=== PATIENT | male | born 1960 | race Caucasian/White ===

== ENCOUNTER 2017-08-20 13:59 | Emergency (ER) | payer OTHER ==
[~2017-08-20] VITALS: Ht 188 cm; Wt 68.0 kg
== END 2017-08-20 14:15 | disposition left against medical advice (07) ==
LOC: ER 13:59
DX: Z53.21 Procedure and treatment not carried out due to patient leaving prior to being seen by health care provider (principal)
CPT/HCPCS: 93005; 93010; 99283

== ENCOUNTER 2017-08-26 21:44 | Observation (INO) | payer OTHER ==
[~2017-08-26] VITALS: Ht 188 cm; Wt 78.9 kg
[2017-08-26 22:23] LABS: BASOPHILS ABSOLUTE AUTO 0.06 K/mm3 (0.00-0.23); BASOPHILS PERCENT AUTO 1 % (0-2); EOSINOPHILS ABSOLUTE AUTO 0.27 K/mm3 (0.00-0.68); EOSINOPHILS PERCENT AUTO 3 % (0-6); Hematocrit 37.8 % (37.0-53.0); IMMATURE GRAN ABSOLUTE AUTO 0.02 K/mm3 (0.00-0.10); IMMATURE GRAN PERCENT AUTO 0 % (0-1); LYMPHOCYTES ABSOLUTE AUTO 2.38 K/mm3 (0.84-5.20); LYMPHOCYTES PERCENT AUTO 24 % (21-46); MONOCYTES ABSOLUTE AUTO 0.68 K/mm3 (0.16-1.47); MONOCYTES PERCENT AUTO 7 % (4-13); Mean Corpuscular HGB 28.4 pg (26.0-34.0); Mean Corpuscular HGB Conc 31.7 g/dL (31.5-36.5); Mean Corpuscular Volume 89 fL (80-100); Mean Platelet Volume 10.2 fL (9.1-12.4); NEUTROPHILS PERCENT AUTO 65 % (41-73); Platelet Count 265 K/mm3 (150-400); RDW Coefficient Variation 15.3 % (11.7-14.2); Red Blood Cell Count 4.23 M/mm3 (4.30-5.90); White Blood Cell Count 9.81 K/mm3 (4.00-11.30)
[2017-08-26 22:37] LABS: International Normalized Ratio 1.06
[2017-08-26 22:47] LABS: Alanine Aminotransfer (ALT/SGP 30 U/L (12-78); Albumin, Blood 3.5 g/dL (3.4-5.0); Albumin/Globulin Ratio 0.9 (0.8-1.8); Alk Phos 55 U/L (50-136); Anion Gap 9 mmol/L (6-16); Aspartate Aminotrans (AST/SGOT 20 U/L (12-37); Bilirubin, Total 0.4 mg/dL (0.1-1.0); Blood Urea Nitrogen 15 mg/dL (8-24); CO2, Blood 26 mmol/L (21-32); Calcium, Blood 8.5 mg/dL (8.5-10.1); Chloride, Blood 106 mmol/L (98-108); Creatinine, Blood 0.88 mg/dL (0.60-1.20); Globulin, Blood 3.9 g/dL (2.2-4.0); Glomerular Filtration Rate >60 (60-); Glucose, Blood 91 mg/dL (70-99); Magnesium, Blood 2.2 mg/dL (1.6-2.4); Potassium, Blood 3.6 mmol/L (3.5-5.5); Sodium, Blood 141 mmol/L (136-145); Total Protein, Blood 7.4 g/dL (6.4-8.2); Troponin I <0.015 ng/mL (0.000-0.040)
[2017-08-27 06:16] LABS: BASOPHILS ABSOLUTE AUTO 0.05 K/mm3 (0.00-0.23); BASOPHILS PERCENT AUTO 1 % (0-2); EOSINOPHILS ABSOLUTE AUTO 0.28 K/mm3 (0.00-0.68); EOSINOPHILS PERCENT AUTO 4 % (0-6); Hematocrit 32.7 % (37.0-53.0); Hemoglobin 10.3 g/dL (13.5-17.5); IMMATURE GRAN ABSOLUTE AUTO 0.01 K/mm3 (0.00-0.10); IMMATURE GRAN PERCENT AUTO 0 % (0-1); LYMPHOCYTES ABSOLUTE AUTO 1.96 K/mm3 (0.84-5.20); LYMPHOCYTES PERCENT AUTO 26 % (21-46); MONOCYTES ABSOLUTE AUTO 0.52 K/mm3 (0.16-1.47); MONOCYTES PERCENT AUTO 7 % (4-13); Mean Corpuscular HGB 28.1 pg (26.0-34.0); Mean Corpuscular HGB Conc 31.5 g/dL (31.5-36.5); Mean Corpuscular Volume 89 fL (80-100); Mean Platelet Volume 10.3 fL (9.1-12.4); NEUTROPHILS ABSOLUTE AUTO 4.69 K/mm3 (1.96-9.15); NEUTROPHILS PERCENT AUTO 63 % (41-73); Platelet Count 219 K/mm3 (150-400); RDW Coefficient Variation 15.3 % (11.7-14.2); RDW Standard Deviation 50.4 fL (35.1-46.3); Red Blood Cell Count 3.66 M/mm3 (4.30-5.90); White Blood Cell Count 7.51 K/mm3 (4.00-11.30)
[2017-08-27 06:39] LABS: Alanine Aminotransfer (ALT/SGP 28 U/L (12-78); Albumin, Blood 2.9 g/dL (3.4-5.0); Albumin/Globulin Ratio 0.9 (0.8-1.8); Alk Phos 47 U/L (50-136); Anion Gap 7 mmol/L (6-16); Aspartate Aminotrans (AST/SGOT 23 U/L (12-37); Bilirubin, Total 0.4 mg/dL (0.1-1.0); Blood Urea Nitrogen 14 mg/dL (8-24); Bun/Creatinine Ratio 16.2 (12.0-20.0); CO2, Blood 25 mmol/L (21-32); Calcium, Blood 8.1 mg/dL (8.5-10.1); Chloride, Blood 109 mmol/L (98-108); Creatinine, Blood 0.87 mg/dL (0.60-1.20); Globulin, Blood 3.3 g/dL (2.2-4.0); Glomerular Filtration Rate >60 (60-); Glucose, Blood 95 mg/dL (70-99); Potassium, Blood 4.2 mmol/L (3.5-5.5); Sodium, Blood 141 mmol/L (136-145); Total Protein, Blood 6.2 g/dL (6.4-8.2)
[2017-08-27 06:40] LABS: CPK Creatine Kinase 71 U/L (39-308); Troponin I <0.015 ng/mL (0.000-0.040)
[2017-08-27 11:24] LABS: Source, Urine Clean Catch
[2017-08-27 11:33] LABS: Bilirubin, Urine Neg (Neg); Blood, Urine 1+ (Neg); Glucose Qualitative, Urine Neg (Neg); Ketones, Urine Neg (Neg); Leukocyte Esterase, Urine 2+ (Neg); Nitrite, Urine Neg (Neg); Protein, Urine Neg (Neg); Urobilinogen, Urine 2+ (Normal); pH, Urine 6.5 (5.0-8.0)
[2017-08-27 11:38] LABS: Appearance, Urine Clear (Clear); Color, Urine Yellow (P-Yellow)
[2017-08-27 11:45] LABS: White Blood Cells, Urine 25-50 /hpf (0-5)
[2017-08-27 11:46] LABS: Bacteria Rare /hpf; Mucus Light (0-Heavy); Red Blood Cells, Urine 0-2 /hpf (0-2); Squamous Epithelial Cells Rare /hpf (Few)
[2017-08-27 15:11] LABS: CPK Creatine Kinase 60 U/L (39-308); Troponin I <0.015 ng/mL (0.000-0.040)
[2017-08-28] MEDS ORDERED: ASPI325 PO (11:21)
[2017-08-28] MEDS ORDERED: Metoprolol Tart25 MG PO (11:25)
== END 2017-08-28 12:31 | disposition home or self-care (01) ==
LOC: ER 21:44 → MEDS 21:45 → ICUW 21:45 → ICUE 08-27 02:27 → MEDS 08-27 09:44 → ENPENDDIS 08-28 11:00 → MEDS 08-28 12:31
PROVIDERS: Emergency Medicine; Internal Medicine
DX: I48.91 Unspecified atrial fibrillation (principal); F17.210 Nicotine dependence, cigarettes, uncomplicated; E87.6 Hypokalemia; I48.92 Unspecified atrial flutter; Z23 Encounter for immunization
CPT/HCPCS: 36415; 71046; 80053; 81001; 82550; 83735; 83880; 84443; 84484; 85025; 85610; 85730; 87086; 93005; 93010; 93306; 96365; 96366; 96367; 96368; 96372; 96375; 99285; G0008; G0378; J0153; J1644; J1650; J2001; J3480; J7030; J7040; Q2038

== ENCOUNTER 2017-09-01 13:13 | Emergency (ER) | payer OTHER ==
[~2017-09-01] VITALS: Ht 188 cm; Wt 72.6 kg
[~2017-09-01 13:13] MED LIST: ASPI325 PO; Metoprolol Tart25 MG PO
[2017-09-01 14:09] LABS: BASOPHILS ABSOLUTE AUTO 0.06 K/mm3 (0.00-0.23); BASOPHILS PERCENT AUTO 1 % (0-2); EOSINOPHILS ABSOLUTE AUTO 0.34 K/mm3 (0.00-0.68); EOSINOPHILS PERCENT AUTO 4 % (0-6); Hematocrit 35.4 % (37.0-53.0); IMMATURE GRAN ABSOLUTE AUTO 0.02 K/mm3 (0.00-0.10); IMMATURE GRAN PERCENT AUTO 0 % (0-1); LYMPHOCYTES ABSOLUTE AUTO 2.06 K/mm3 (0.84-5.20); LYMPHOCYTES PERCENT AUTO 26 % (21-46); MONOCYTES ABSOLUTE AUTO 0.44 K/mm3 (0.16-1.47); MONOCYTES PERCENT AUTO 6 % (4-13); Mean Corpuscular HGB 27.6 pg (26.0-34.0); Mean Corpuscular HGB Conc 31.1 g/dL (31.5-36.5); Mean Corpuscular Volume 89 fL (80-100); Mean Platelet Volume 10.3 fL (9.1-12.4); NEUTROPHILS ABSOLUTE AUTO 5.12 K/mm3 (1.96-9.15); NEUTROPHILS PERCENT AUTO 64 % (41-73); Platelet Count 246 K/mm3 (150-400); RDW Coefficient Variation 14.7 % (11.7-14.2); RDW Standard Deviation 48.1 fL (35.1-46.3); Red Blood Cell Count 3.98 M/mm3 (4.30-5.90); White Blood Cell Count 8.04 K/mm3 (4.00-11.30)
[2017-09-01 14:35] LABS: Alanine Aminotransfer (ALT/SGP 32 U/L (12-78); Albumin, Blood 3.8 g/dL (3.4-5.0); Alk Phos 54 U/L (50-136); Anion Gap 4 mmol/L (6-16); Aspartate Aminotrans (AST/SGOT 27 U/L (12-37); Bilirubin, Total 0.3 mg/dL (0.1-1.0); Blood Urea Nitrogen 20 mg/dL (8-24); CO2, Blood 28 mmol/L (21-32); Calcium, Blood 8.9 mg/dL (8.5-10.1); Chloride, Blood 109 mmol/L (98-108); Creatinine, Blood 0.91 mg/dL (0.60-1.20); Globulin, Blood 3.8 g/dL (2.2-4.0); Glomerular Filtration Rate >60 (60-); Glucose, Blood 89 mg/dL (70-99); Magnesium, Blood 2.2 mg/dL (1.6-2.4); Potassium, Blood 4.3 mmol/L (3.5-5.5); Sodium, Blood 141 mmol/L (136-145); Total Protein, Blood 7.6 g/dL (6.4-8.2)
[2017-09-01 14:37] LABS: Troponin I <0.015 ng/mL (0.000-0.040)
[2017-09-01] MEDS ORDERED: Metoprolol Succ25 MG PO (15:22)
== END 2017-09-01 15:44 | disposition home or self-care (01) ==
LOC: ER 13:13
PROVIDERS: Emergency Medicine
DX: I48.91 Unspecified atrial fibrillation (principal); Z87.891 Personal history of nicotine dependence; Z59.0 Homelessness
CPT/HCPCS: 71046; 80053; 83735; 84484; 85025; 93005; 93010; 99284; J7120

== ENCOUNTER 2018-07-27 18:05 | Inpatient (IN) | payer OTHER ==
[~2018-07-27] VITALS: Ht 188 cm; Wt 97.0 kg
[~2018-07-27 18:05] MED LIST changes: +Metoprolol Succ25 MG PO
[2018-07-27 18:40] LABS: Calcium, Ionized (POC) 1.16 mmol/L (1.10-1.46); Chloride (POC) 105 mmol/L (98-108); Glucose (ISTAT POC) 186 mg/dL (70-99); Hemoglobin (POC) 12.6 g/dL (13.5-17.5); Potassium (POC) 3.9 mmol/L (3.5-5.5); Sodium (POC) 141 mmol/L (135-148); Total CO2 (POC) 18 mmol/L (21-32)
[2018-07-27 19:02] LABS: Hematocrit 39.6 % (37.0-53.0); Hemoglobin 12.1 g/dL (13.5-17.5); Mean Corpuscular HGB 30.1 pg (26.0-34.0); Mean Corpuscular HGB Conc 30.6 g/dL (31.5-36.5); Mean Corpuscular Volume 99 fL (80-100); Mean Platelet Volume 10.3 fL (9.1-12.4); Platelet Count 236 K/mm3 (150-400); RDW Standard Deviation 46.2 fL (35.1-46.3); Red Blood Cell Count 4.02 M/mm3 (4.30-5.90); White Blood Cell Count 8.88 K/mm3 (4.00-11.30)
[2018-07-27 19:10] LABS: Alanine Aminotransfer (ALT/SGP 38 U/L (12-78); Albumin, Blood 3.4 g/dL (3.4-5.0); Alk Phos 46 U/L (50-136); Anion Gap 16 mmol/L (6-16); Aspartate Aminotrans (AST/SGOT 42 U/L (12-37); Bilirubin, Total 0.3 mg/dL (0.1-1.0); Blood Urea Nitrogen 42 mg/dL (8-24); CHOL/HDL RATIO 1.8; CO2, Blood 18 mmol/L (21-32); Calcium, Blood 9.2 mg/dL (8.5-10.1); Chloride, Blood 107 mmol/L (98-108); Cholesterol 105 mg/dL (50-200); Creatinine, Blood 1.91 mg/dL (0.60-1.20); Globulin, Blood 3.4 g/dL (2.2-4.0); Glomerular Filtration Rate 38 (60-); Glucose, Blood 189 mg/dL (70-99); HDL Cholesterol 57 mg/dL (>39); LDL/HDL RATIO 0.3; Low Density Lipoprotein Chol 18 mg/dL (0-110); Magnesium, Blood 2.4 mg/dL (1.6-2.4); Potassium, Blood 3.9 mmol/L (3.5-5.5); Sodium, Blood 141 mmol/L (136-145); Total Protein, Blood 6.8 g/dL (6.4-8.2); Triglycerides 149 mg/dL (30-160); Troponin I 0.058 ng/mL (0.000-0.040); Very Low Density Lipoprot Chol 29 mg/dL (6-32)
[2018-07-27] MEDS ORDERED: Lopressor 25 mg25 MG PO (19:34)
[2018-07-27 19:36] LABS: International Normalized Ratio 1.37; Prothrombin Time Results 14.1 Sec (9.7-11.5)
[2018-07-27 19:55] LABS: Source, Urine Voided
[2018-07-27 20:01] LABS: Appearance, Urine Hazy (Clear); Bilirubin, Urine Neg (Neg); Blood, Urine 4+ (Neg); Color, Urine Yellow (P-Yellow); Glucose Qualitative, Urine Neg (Neg); Ketones, Urine 1+ (Neg); Leukocyte Esterase, Urine 3+ (Neg); Nitrite, Urine Neg (Neg); Protein, Urine 2+ (Neg); Urobilinogen, Urine NORM (Normal)
[2018-07-27 20:27] LABS: Squamous Epithelial Cells Not Seen /hpf (Few); White Blood Cells, Urine TNTC /hpf (0-5)
[2018-07-27 20:28] LABS: Bacteria Mod /hpf; Red Blood Cells, Urine Not Seen /hpf (0-2)
[2018-07-27 23:48] LABS: PCO2 Arterial 33.2 mmHg (35-45); PO2 Arterial 402 mmHg (80-100); pH Blood Arterial 7.36 (7.35-7.45)
[2018-07-28 01:24] LABS: U Amphetamine Screen DETECTED; U Barbituate Screen Not Detected; U Benzodiazapine Screen Not Detected; U Buprenorphine Screen Not Detected; U Cannabinoids Screen Not Detected; U Cocaine Screen Not Detected; U Methadone Screen Not Detected; U Methamphetamine Screen DETECTED; U Opiates Screen Not Detected; U Oxycodone Screen Not Detected; U Phencyclidine Screen Not Detected; U Propoxyphene Screen Not Detected
--- NOTE | 2018-07-28 02:00 | NUR ---
ADMIT PT ARRIVED TO ICU 8 AT 2330 VIA ER BED, INTUBATED AND SEDATED. PT TRANSFERED TO ICU VENT, SETTINGS AC 18, TV 500, PEEP 5, FIO2 100% INITIALLY. FIO2 NOW TITRATED DOWN TO 45%. PT UNABLE TO OPEN EYES TO COMMANDS, BUT GAG AND COUGH REFLEXES PRESENT AND PT THRASHING AROUND IN BED AT TIMES. PT SEDATED WITH VERSED UPON ARRIVAL FROM ED. PT STARTED ON PROPOFOL AT 20 MCG/KG/MIN. PT ON EPI GTT THROUGH PERIPHERAL IV UPON ARRIVAL FROM ED. DR GONZALEZ HERE TO SEE PT AND PLACE CENTRAL LINE. LINE PLACED TO RIJ, CXR OBTAINTED TO CONFIRM PLACEMENT. NEW ORDERS RECIEVED, SEE ORDER HX. PT CURRENTLY ON DOPAMINE GTT AT 10 MCG/KG/MIN. HR 90'S, SBP 90-110'S WITH DOPAMINE GTT. OGT PLACED TO LIS WITH BILE RETURN NOTED. CHARLES TEMP PROBE IN PLACE WITH YELLOW OUTPUT NOTED. SBW RESTRAINTS IN PLACE. NO FAMILY AT BEDSIDE AT THIS TIME. WILL CONTINUE TO MONITOR.
[2018-07-28 02:55] LABS: Hematocrit 34.5 % (37.0-53.0); Hemoglobin 11.2 g/dL (13.5-17.5); Mean Corpuscular HGB 30.3 pg (26.0-34.0); Mean Corpuscular HGB Conc 32.5 g/dL (31.5-36.5); Platelet Count 193 K/mm3 (150-400); RDW Coefficient Variation 12.9 % (11.7-14.2); RDW Standard Deviation 44.5 fL (35.1-46.3); White Blood Cell Count 12.66 K/mm3 (4.00-11.30)
[2018-07-28 03:03] LABS: Mean Corpuscular Volume 93 fL (80-100)
[2018-07-28 03:12] LABS: Albumin, Blood 3.1 g/dL (3.4-5.0); Bilirubin, Total 0.3 mg/dL (0.1-1.0); Bun/Creatinine Ratio 26.3 (12.0-20.0); Calcium, Blood 7.5 mg/dL (8.5-10.1); Creatinine, Blood 1.71 mg/dL (0.60-1.20); Globulin, Blood 3.1 g/dL (2.2-4.0); Potassium, Blood 4.9 mmol/L (3.5-5.5); Total Protein, Blood 6.2 g/dL (6.4-8.2)
[2018-07-28 03:29] LABS: Troponin I 17.8 ng/mL (0.000-0.040)
[2018-07-28 03:46] LABS: Creatine Kinase MB 97.3 ng/mL (0.0-3.6); Creatine Kinase MB Index 7.7 (0.0-4.0)
--- NOTE | 2018-07-28 06:02 | NUR ---
SHIFT SUMMARY NO ACUTE CHANGES SINCE ADMIT. PT HAS REMAINED SEDATED ON VENT, AC 18, TV 500, PEEP 5, FIO2 35%. PT UNRESPONSIVE TO NOXIOUS STIMULI, BUT GAG AND COUGH PRESENT. PT OCCASIONALLY THRASHES AROUND IN BED. SBW RESTRAINTS IN PLACE. CL TO RIGHT IJ IN PLACE WITH DOPAMINE AT 10 MCG/KG/MIN, PROPOFOL AT 30 MCG/KG/MIN, HEPARIN AT 13 UNITS/KG/HR, NS TKO. OGT IN PLACE. CHARLES IN PLACE WITH YELLOW OUTPUT NOTED. VITAL SIGNS STABE AT THIS TIME. DR JIANG IN TO SEE PT THIS MORNING AND TO PUT IN NEW ORDERS. SEE PREVIOUS SHIFT NOTES FOR MORE SHIFT INFO. WILL CONTINUE TO MONITOR AND REPORT OFF TO ONCOMING RN.
--- NOTE | 2018-07-28 08:42 | NUR ---
IN UNIT; GIVEN UPDATE ON PT.
--- NOTE | 2018-07-28 10:08 | NUR ---
IN TO SEE PT. EKG AND LIMITED ECHO ORDERED AND COMPLETED. EKG SHOWS ACUTE SC. DR HARRIS AWARE. DR MOORE IN TO SEE PT. DR LATHAM IN TO SEE PT WELL. NO SURGICAL INTERVENTION AT THIS TIME.
--- NOTE | 2018-07-28 10:15 | NUR ---
DR HARRIS SPOKE WITH PT'S FRIEND WHOM WAS LISTED ONLY CONTACT. PT DOES NOT HAVE FAMILY. PT HAS HX OF NON COMPLIANCE WITH MEDICATIONS. STEMI WILL BE TREATED MEDICALLY. PALLIATIVE CARE NOTIFIED AND WILL FOLLOW UP WITH ETHICS. PT NOW DNR STATUS. SPUTUM SAMPLE SENT TO LAB.
[2018-07-28 11:35] LABS: Troponin I 47.2 ng/mL (0.000-0.040)
[2018-07-28 11:57] LABS: Creatine Kinase MB Index 10.5 (0.0-4.0)
--- NOTE | 2018-07-28 12:09 | NUR ---
Review of patient with Hospitalist. Ethical and care plan support for decisional process of acute patient. Contacted Kayce Domingo. She is his contact and friend. Asked about next of kin. States he has none and no contact with family for years. Kayce wilburn she did not know he was in hosptital stated she would come in right away. Advised her he was very ill in icu on vertilator and care decision needed to be made. Cardiolgist contacted Kayce for plan of care and decisional support for patient. will physicians with supportive care as guided by [facility] directive of compassionate care. Will review with cardiology for [employer] prognostic assessment for survival.
--- NOTE | 2018-07-28 12:33 | NUR ---
HEPARIN INCREASED TO 14UNITS PER PHARMACY. TROPONIN CALLED INTO DR PACHECO, SEE NEW ORDERS
--- NOTE | 2018-07-28 12:46 | NUR ---
chart review of previous admission and care. Review of patient with cardiology.
--- NOTE | 2018-07-28 19:20 | NUR ---
ASSUMED CARE BEDSIDE REPORT RECIEVED. PT IS RESTING QUIETLY, SEDATED, ON VENT. VENT SETTINGS AC 18, TV 500, PEEP 5, FIO2 35%. PT WITH LARGE AMOUNT OF THICK WHITE SECRETIONS WITH ETT SUCTION. PT WITH GOOD COUGH AND GAG. PT NOT AROUSING TO VERBAL OR NOXIOUS STIMULI AT THIS TIME. PT SEDATED WITH PROPOFOL AT 30 MCG/KG/MIN. VITAL SIGNS STABLE WITH DOPAMINE AT 10 MCG/KG/MIN. HEPARIN GTT INFUSING AT 15 UNITS/KG/HR PER PHARMACY. CL TO RIGHT IJ C/D/I. OGT IN PLACE WITH TF AT 25 ML/HR, MINIMAL RESIDUALS NOTED. SBW RESTRAINTS IN PLACE. CHARLES IN PLACE. NO FAMILY AT BEDSIDE. WILL CONTINUE TO MONITOR.
--- NOTE | 2018-07-28 19:25 | NUR ---
PT WOKE UP AROUND 1830, RESTLESS, ANXIOUS. TRYING TO SPEAK. PT NODDED HEAD YES TO PAIN. PT ABLE TO BUSINESS TRAVEL CONSULTANT HAND TO COMMAND. DR JIANG NOTIFIED. FENT ORDERED. TF STARTED AT 25CC/HR. REPORT GIVEN TO ONCOMING RN
[2018-07-29 03:23] LABS: BASOPHILS ABSOLUTE AUTO 0.04 K/mm3 (0.00-0.23); BASOPHILS PERCENT AUTO 0 % (0-2); EOSINOPHILS ABSOLUTE AUTO 0.01 K/mm3 (0.00-0.68); EOSINOPHILS PERCENT AUTO 0 % (0-6); Hematocrit 35.8 % (37.0-53.0); Hemoglobin 11.4 g/dL (13.5-17.5); IMMATURE GRAN ABSOLUTE AUTO 0.04 K/mm3 (0.00-0.10); IMMATURE GRAN PERCENT AUTO 0 % (0-1); LYMPHOCYTES ABSOLUTE AUTO 1.65 K/mm3 (0.84-5.20); LYMPHOCYTES PERCENT AUTO 16 % (21-46); MONOCYTES ABSOLUTE AUTO 1.04 K/mm3 (0.16-1.47); MONOCYTES PERCENT AUTO 10 % (4-13); Mean Corpuscular HGB 30.2 pg (26.0-34.0); Mean Corpuscular HGB Conc 31.8 g/dL (31.5-36.5); Mean Corpuscular Volume 95 fL (80-100); Mean Platelet Volume 10.2 fL (9.1-12.4); NEUTROPHILS ABSOLUTE AUTO 7.68 K/mm3 (1.96-9.15); NEUTROPHILS PERCENT AUTO 73 % (41-73); Platelet Count 200 K/mm3 (150-400); RDW Coefficient Variation 13.2 % (11.7-14.2); RDW Standard Deviation 45.7 fL (35.1-46.3); Red Blood Cell Count 3.78 M/mm3 (4.30-5.90); White Blood Cell Count 10.46 K/mm3 (4.00-11.30)
[2018-07-29 03:40] LABS: International Normalized Ratio 1.11; Prothrombin Time Results 11.7 Sec (9.7-11.5)
[2018-07-29 03:45] LABS: Alanine Aminotransfer (ALT/SGP 118 U/L (12-78); Albumin, Blood 2.8 g/dL (3.4-5.0); Albumin/Globulin Ratio 0.9 (0.8-1.8); Alk Phos 44 U/L (50-136); Anion Gap 7 mmol/L (6-16); Aspartate Aminotrans (AST/SGOT 582 U/L (12-37); Bilirubin, Total 0.3 mg/dL (0.1-1.0); Blood Urea Nitrogen 30 mg/dL (8-24); Bun/Creatinine Ratio 28.6 (12.0-20.0); CO2, Blood 24 mmol/L (21-32); Calcium, Blood 7.8 mg/dL (8.5-10.1); Chloride, Blood 110 mmol/L (98-108); Creatinine, Blood 1.05 mg/dL (0.60-1.20); Glomerular Filtration Rate >60 (60-); Glucose, Blood 148 mg/dL (70-99); Magnesium, Blood 2.1 mg/dL (1.6-2.4); Phosphorus, Blood 2.3 mg/dL (2.5-4.9); Potassium, Blood 3.7 mmol/L (3.5-5.5); Sodium, Blood 141 mmol/L (136-145); Total Protein, Blood 5.8 g/dL (6.4-8.2)
--- NOTE | 2018-07-29 04:30 | NUR ---
SBT PT DID WELL WITH SBT THIS AM. PT BECAME SOMEWHAT AGITATED INITIALLY REACHING FOR ETT. PT REASSURED AND MED WITH 1MG ATIVAN PRN. PT REFUSED TO OPEN EYES UPON COMMAND OR SQUEEZE HANDS UPON COMMAND. PT SHOOK HEAD NO WHEN ASKED TO DO SO. LATER ON, PT SPONTANEOUSLY OPENED EYES AND CONTINUED TO ATTEMPT TO REACH FOR ETT. VITAL SIGNS REMAINED STABLE. PROPOFOL RESTARTED AT 30 MCG/KG/MIN.
[2018-07-29 05:12] LABS: PCO2 Arterial 33.9 mmHg (35-45); PO2 Arterial 71.8 mmHg (80-100); pH Blood Arterial 7.41 (7.35-7.45)
--- NOTE | 2018-07-29 06:00 | NUR ---
SHIFT SUMMARY NO ACUTE CHANGES THIS SHIFT. PT REMAINS SEDATED ON VENT. VENT SETTINGS REMAIN UNCHANGED. VITAL SIGNS HAVE REMAINED STABLE WITH DOPAMINE AT 10 MCG/KG/MIN. PROPOFOL HAS REMAINED AT 30 MCG/KG/MIN. HEPARIN INCREASED TO 16 UNITS/KG/HR PER PHARMACY. TF INCREASED TO GOAL RATE, MINIMAL RESIDUALS NOTED. CHARLES IN PLACE WITH GOOD URINE OUTPUT NOTED. PT WITH POOR PERIPHERAL PERFUSION AND COOL EXTREMITIES. PT APPEARS TO BE MORE ASHEN IN COLOR WHEN COMPARED TO BEGINNING OF SHIFT. WILL CONTINUE TO MONITOR AND REPORT OFF TO ONCOMING RN.
--- NOTE | 2018-07-29 08:28 | NUR ---
PT HAS INCREASED ECTOPY WITH ACC JUNCTIONAL RHYTHM AT TIMES. BP DROPS SIGNIFICANTLY WITH THIS RHYTHM. RATE IN 60'S. DOPAMINE INCREASED TO 20MCG DURING THIS EVENT; PT'S RESPONDS TO DOPAMINE WITH RETURN OF SINUS RHYTHM AND INCREASE IN BP. DR PACHECO AT BEDSIDE TO SEE PT. FLUIDS ORDERED.
--- NOTE | 2018-07-29 08:43 | NUR ---
PT CONVERTING IN BETWEEN A FLUTTER AND NSR W ECTOPY;PVC'S, PAC'S, DROPPED QRS, FIRST DEGREE HEART BLOCK. DR JIANG IN UNIT; GIVEN UPDATE. NS STARTED AT 125CC/HR X 1L.
--- NOTE | 2018-07-29 08:52 | NUR ---
DR JIANG AT BEDSIDE. HEPARIN GTT DC'D PER DR PACHECO. NS STARTED. PT GRAMACING, RESPONDS TO NOXIOUS STIMULI, NOT OPENING EYES OR OLLOWING DIRECTIONS. PT WILL REMAIN INTUBATE TODAY. TF INFUSING PER Indra LACKEY ORDERS. DOPAMINE TITRATED DOWN TO 18MCG
--- NOTE | 2018-07-29 10:07 | NUR ---
DOPAMINE DECREASED TO 14MCG. HEPARIN DC'D
--- NOTE | 2018-07-29 10:59 | NUR ---
DR PACHECO IN UNIT SPEAKING WITH PT'S FRIEND BERTA.
--- NOTE | 2018-07-29 11:22 | NUR ---
PER DR PACHECO NEW ORDERS NOT TO ESCALATE CARE OF PT. DOPAMINE NOT BE INCREASED PAST 14MCG; WHICH IS PT'S CURRENT DOSE.
--- NOTE | 2018-07-29 13:06 | NUR ---
LEFT EYE CRUSTED OVER; CLEANED W WARM COMPRESS, DROPS APPLIED. ATTENDS CLEAN. PT DENIES C/O PAIN. NO SIGNS OF ETOH W/D OF YET. PT ORIENTED TO SELF AND PLACE. UNABLE TO [place] OR YEAR. LEVOPHED AT 5MCG.
--- NOTE | 2018-07-29 15:33 | NUR ---
Physician spoke with contact. will update care mangers on [facility] status and plan of care.
--- NOTE | 2018-07-29 15:38 | NUR ---
review ith ICU nurse of plan if pt should .
--- NOTE | 2018-07-29 16:44 | NUR ---
PT REMAINS ON 14MCG OF DOPAMINE. 200CC RESIDUAL; TF PLACED ON HOLD. TYLENOL PT GIVEN FOR TEMP 100.9 RATHER THAN COOLING EXCESSIVELY PT HAS VERY POOR PERIPHERAL PERFUSION AT THIS POINT IN TIME. PT REMAINS SEDATED AND COMFORTABLE ON 30MCG OF PROPOFOL; GRIMACES W NOXIOUS STIMULI.
--- NOTE | 2018-07-29 17:49 | NUR ---
PT'S TEMP 101.7. DR JIANG NOTIFIED. ICE PACKS PLACED TO GROIN, UNDER ARMS, AND NECK. COOL CLOTH TO FOREHEAD, FAN ON PT.
--- NOTE | 2018-07-29 20:00 | NUR ---
ASSUMED CARE BEDSIDE REPORT RECIEVED. PT IS SEDATED ON VENT. VENT SETTINGS AC 12, TV 500, PEEP 5, FIO2 30%. PT APPEARS CALM AND COMFORTABLE AT THIS TIME. SEDATED WITH PROPOFOL AT 30 MCG/KG/MIN. CL TO RIJ C/D/I. VITAL SIGNS STABLE AT THIS TIME WITH DOPAMINE AT 14 MCG/KG/MIN. OGT IN PLACE. TF STARTED AT 40 ML/HR GOAL RATE, NO RESIDUALS AT THIS TIME. SBW RESTRAINTS IN PLACE. PT WITH COOL AND PALE EXTREMITIES. SOME MOTTLING NOTED TO BLE FROM KNEES DOWN. CHARLES IN PLACE WITH YELLOW OUTPUT NOTED. NO FAMILY AT BEDSIDE. PT WITH COUGH AND GAG PRESENT, NOT AROUSEABLE TO VERBAL OR NOXIOUS STIMULI AT THIS TIME. WILL CONTINUE TO MONITOR.
[2018-07-30 04:08] LABS: BASOPHILS ABSOLUTE AUTO 0.04 K/mm3 (0.00-0.23); BASOPHILS PERCENT AUTO 0 % (0-2); EOSINOPHILS ABSOLUTE AUTO 0.02 K/mm3 (0.00-0.68); EOSINOPHILS PERCENT AUTO 0 % (0-6); Hematocrit 36.5 % (37.0-53.0); Hemoglobin 11.8 g/dL (13.5-17.5); IMMATURE GRAN ABSOLUTE AUTO 0.05 K/mm3 (0.00-0.10); IMMATURE GRAN PERCENT AUTO 0 % (0-1); LYMPHOCYTES ABSOLUTE AUTO 1.49 K/mm3 (0.84-5.20); LYMPHOCYTES PERCENT AUTO 13 % (21-46); MONOCYTES ABSOLUTE AUTO 1.51 K/mm3 (0.16-1.47); MONOCYTES PERCENT AUTO 13 % (4-13); Mean Corpuscular HGB 29.9 pg (26.0-34.0); Mean Corpuscular HGB Conc 32.3 g/dL (31.5-36.5); Mean Corpuscular Volume 93 fL (80-100); Mean Platelet Volume 10.4 fL (9.1-12.4); NEUTROPHILS PERCENT AUTO 73 % (41-73); Platelet Count 214 K/mm3 (150-400); RDW Coefficient Variation 13.3 % (11.7-14.2); RDW Standard Deviation 45.1 fL (35.1-46.3); Red Blood Cell Count 3.94 M/mm3 (4.30-5.90); White Blood Cell Count 11.61 K/mm3 (4.00-11.30)
[2018-07-30 04:27] LABS: International Normalized Ratio 1.14; Prothrombin Time Results 11.9 Sec (9.7-11.5)
[2018-07-30 04:35] LABS: Alanine Aminotransfer (ALT/SGP 120 U/L (12-78); Albumin, Blood 2.6 g/dL (3.4-5.0); Albumin/Globulin Ratio 0.8 (0.8-1.8); Alk Phos 52 U/L (50-136); Anion Gap 7 mmol/L (6-16); Aspartate Aminotrans (AST/SGOT 426 U/L (12-37); Bilirubin, Total 0.4 mg/dL (0.1-1.0); Blood Urea Nitrogen 22 mg/dL (8-24); Bun/Creatinine Ratio 26.4 (12.0-20.0); CO2, Blood 23 mmol/L (21-32); Calcium, Blood 7.8 mg/dL (8.5-10.1); Chloride, Blood 110 mmol/L (98-108); Creatinine, Blood 0.83 mg/dL (0.60-1.20); Globulin, Blood 3.4 g/dL (2.2-4.0); Glomerular Filtration Rate >60 (60-); Glucose, Blood 159 mg/dL (70-99); Magnesium, Blood 2.2 mg/dL (1.6-2.4); Phosphorus, Blood 2.3 mg/dL (2.5-4.9); Potassium, Blood 4.2 mmol/L (3.5-5.5); Sodium, Blood 140 mmol/L (136-145); Vancomycin, Trough 10.9 ug/mL (5.0-10.0)
[2018-07-30 05:23] LABS: PCO2 Arterial 31.6 mmHg (35-45); PO2 Arterial 67.2 mmHg (80-100); pH Blood Arterial 7.43 (7.35-7.45)
--- NOTE | 2018-07-30 06:03 | NUR ---
SHIFT SUMMARY NO ACUTE CHANGES THIS SHIFT. PT DID WELL WITH SBT THIS AM. PT OPENED EYES TO VERBAL STIMULI AND IS ABLE TO SQUEEZE HANDS UPON COMMAND. PT REMAINS SEDATED ON VENT AT THIS TIME. VENT SETTINGS UNCHANGED. PROPOFOL AT 30 MCG/KG/MIN, DOPAMINE AT 14 MCG/KG/MIN, AND NS TKO. VITAL SIGNS HAVE REMAINED STABLE WITH DOPAMINE GTT. SBW RESTRAINTS REMAIN IN PLACE. OGT WITH TF AT 40 ML/HR GOAL RATE, MINIMAL RESIDUALS THIS SHIFT. CHARLES IN PLACE WITH GOOD URINE OUTPUT THIS SHIFT. EXTREMITIES REMAIN COOL AND PALE. WILL CONTINUE TO MONITOR AND REPORT OFF TO ONCOMING RN.
--- NOTE | 2018-07-30 07:45 | NUR ---
AM ASSESSMENT: PT IS INTUBATED AND SEDATED WITH TITRATED PROPOFOL. NO SIGNS OF PAIN AT THIS TIME. PT MOVES ALL EXTREMITIES WEAKLY. BILATERAL SOFT, WRIST RESTRAINTS IN PLACE. LUNGS ARE CLEAR BUT DIMINISHED IN THE BILATERAL BASES. SATS >90% ON VENT SETTINGS: AC-12, TV-500, P-5, FI02-30%. HR REGULAR- 90'S RANGE. PT CONTINUED ON TITRATED DOPAMINE AT 14MCG/MIN. STARTED NS @ 125ML/HR PER CYNDI JUNIOR. WILL PUSH IVF'S IN ATTEMPT TO START WEANING PT OFF DOPAMINE. WILL MAINTAIN CURRENT LEVEL OF CARE BUT PLAN OF CARE PER PT'S WISHES IS NOT TO INCREASE ACUITY OF CARE AT THIS TIME. PT WILL REMAIN INTUBATED BUT IS A DNR OTHERWISE. CENTRAL LINE TO RT IJ. ABD IS SLIGHTLY DISTENDED. BT'S HYPOACTIVE X4 QAUDS DESPITE PIVOT 1.5 @ GOAL RATE. LOW RESIDUALS. CHARLES CATH DRAINING CLEAR, YELLOW URINE TO GRAVITY.
--- NOTE | 2018-07-30 12:55 | NUR ---
DR LEMON IN TO ASSESS PT. UPDATED WITH PT'S CURRENT STATUS. DISCUSSED CONTINUED NEED FOR DOPAMINE TO MANAGE HYPOTENSION.
--- NOTE | 2018-07-30 13:22 | NUR ---
No family or friends present at bedside. Pt vented and non-responsive to touch/voice. Held his hand, providing presence of love and compassion. Advised RN to contact me when friend arrives. I will remain available.
--- NOTE | 2018-07-30 18:34 | NUR ---
SHIFT SUMMARY: PT REMAINS INTUBATED AND SEDATED WITH TITRATED PROPOFOL. NO SIGNS OF PAIN AT THIS TIME. PT MOVES ALL EXTREMITIES WEAKLY. BILATERAL SOFT, WRIST RESTRAINTS IN PLACE. LUNGS ARE CLEAR BUT DIMINISHED IN THE BILATERAL BASES. SATS >90% ON VENT SETTINGS: AC-12, TV-500, P-5, FI02-30%. HR REGULAR- 90'S RANGE. PT CONTINUED ON TITRATED DOPAMINE AT 12MCG/MIN. NS @ 125ML/HR. WILL MAINTAIN CURRENT LEVEL OF CARE BUT PLAN OF CARE PER PT'S WISHES IS NOT TO INCREASE ACUITY OF CARE AT THIS TIME. PT WILL REMAIN INTUBATED BUT IS A DNR OTHERWISE. CENTRAL LINE TO RT IJ. VANCO/ZOSYN D/C'D, PT STARTED ON CEFAZOLIN PER URINE C+S. ABD IS SLIGHTLY DISTENDED. BT'S HYPOACTIVE X4 QAUDS DESPITE PIVOT 1.5 @ GOAL RATE. LOW RESIDUALS. NO BM THIS SHIFT. CHARLES CATH DRAINING CLEAR, YELLOW URINE TO GRAVITY, 500ML OUT THIS SHIFT.
--- NOTE | 2018-07-30 19:15 | NUR ---
ASSUMING CARE OF PT AT THIS TIME. PT REPORT RECEIVED AT BEDSIDE WITH OFFGOING NURSE, VIGNESH HANSON. PT LAYING IN BED, INTUBATED, AND SEDATED. PT DOES NOT APPEAR TO BE IN DISTRESS AT THIS TIME. VS STABLE - SEE VS FS. WILL REVIEW PLAN OF CARE.
--- NOTE | 2018-07-30 19:25 | NUR ---
REPORTED OFF TO MARGIE VICK WHOM WILL ASSUME CARE OF THIS PT.
--- NOTE | 2018-07-30 19:30 | NUR ---
ASSESSMENT PT UNRESPONSIVE, DOES NOT RESPOND TO PAINFUL STIMULI EXCEPT FACIAL GRIMACING WITH ORAL CARE, SLIGHT GAG/COUGH NOTED WITH DEEP ORAL CARE, INTUBATED, SEDATED, DOES NOT OPEN EYES, SLUGGISH PUPIL RESPOND, NO TRACKING WITH EYES, DOES NOT NOD HEAD Y/N TO QUESTIONS, DOES NOT FOLLOW COMAMNDS, UNRESPONSIVE. PROPOFOL DRIP AT 40 MCG/KG/MIN. PROPOFOL DRIP TITRATED TO 30 MCG/KG/MIN. WILL CONT TO TITRATE PROFOL DRIP TO EFFECT. PT DOES NOT MOVE EXTREMETIES. NO S/SX OF PAIN/DISCOMFORT NOTED AT THIS TIME. LUNGS COARSE, DIMINISHED MIDDLE AND LOWER LOBES. VENT SETTINGS: AC 12, TV 500, PEEP 5, FIO2 30%. OXY SAT >90%. RR 20'S. SX VIA ETT: SMALL AMOUNTS OF THICK WHITE SECRETIONS. TEMP 99.5 - FAN ON, BLANKETS OFF, ROOM TEMP DOWN, ICE BAGS. ACCELERATED JUNCTIONAL RHYTHM. HR 80'S. BP STABLE (SEE VS FS) WHILE ON DOPAMINE DRIP. DOPAMINE DRIP 12 MCG/KG/MIN - WILL TITRATE TO EFFECT. HEPARIN DRIP AT 16 UNITS/KG/HR AT A DOSING WEIGHT 83 KG (26.6 ML/HR). FAINT PULSES. TRACE EDEMA. SKIN COOL, PALE, CYANOTIC, MOTTLED. SKIN MOTTLED UP TO BILAT KNEES AND FINGERS. HYPOACTIVE BT X4 QUADRANTS. ABD SOFT, NONTENDER, MILD DIST. OG IN PLACE. TF: PIVOT 1.5 @ GOAL RATE 40 ML/HR AND 30 ML FLUSH Q4 HR. RESIDUAL 10. NO BM. F/C: DARK YELLOW URINE. CL R IJ. NS TKO AT 10 ML/HR. NS AT 125 ML/HR.
--- NOTE | 2018-07-31 01:00 | NUR ---
[facility] DEM[facility] MOLINA ALLOWING [facility] AT 0100 TO BE DRAWN WITH AM LABS.
[2018-07-31 03:39] LABS: BASOPHILS ABSOLUTE AUTO 0.04 K/mm3 (0.00-0.23); BASOPHILS PERCENT AUTO 0 % (0-2); EOSINOPHILS ABSOLUTE AUTO 0.03 K/mm3 (0.00-0.68); EOSINOPHILS PERCENT AUTO 0 % (0-6); Hematocrit 34.4 % (37.0-53.0); Hemoglobin 10.8 g/dL (13.5-17.5); IMMATURE GRAN ABSOLUTE AUTO 0.07 K/mm3 (0.00-0.10); IMMATURE GRAN PERCENT AUTO 1 % (0-1); LYMPHOCYTES ABSOLUTE AUTO 1.22 K/mm3 (0.84-5.20); LYMPHOCYTES PERCENT AUTO 12 % (21-46); MONOCYTES ABSOLUTE AUTO 0.86 K/mm3 (0.16-1.47); MONOCYTES PERCENT AUTO 9 % (4-13); Mean Corpuscular HGB 29.3 pg (26.0-34.0); Mean Corpuscular HGB Conc 31.4 g/dL (31.5-36.5); Mean Corpuscular Volume 94 fL (80-100); Mean Platelet Volume 11.2 fL (9.1-12.4); NEUTROPHILS ABSOLUTE AUTO 7.83 K/mm3 (1.96-9.15); NEUTROPHILS PERCENT AUTO 78 % (41-73); NRBC ABSOLUTE 0.04 K/mm3 (0.00-0.02); NRBC Auto 0.4 /100 WBC (0.0-0.2); Platelet Count 224 K/mm3 (150-400); RDW Coefficient Variation 13.6 % (11.7-14.2); RDW Standard Deviation 46.4 fL (35.1-46.3); Red Blood Cell Count 3.68 M/mm3 (4.30-5.90); White Blood Cell Count 10.05 K/mm3 (4.00-11.30)
--- NOTE | 2018-07-31 03:47 | NUR ---
DR. GONZALEZ DIFFICULTY OBTAINING ACCURATE SPO2 READING. PRINCESS RN, NICANOR RN, LILLY RN, JATINDER RT, AND BERYL RT HAVE BEEN ATTEMPTING TO OBTAIN ACCURATE SPO2 READING T/O SHIFT. WHEN SPO2 PROBE IS READING, OXYGEN SATURATION 90% AND GREATER WHILE ON VENT SETTINGS AC 12, TV 500, PEEP 5. DR. GONZALEZ ORDERED AM ABG.
[2018-07-31 03:59] LABS: Albumin, Blood 2.4 g/dL (3.4-5.0); Anion Gap 8 mmol/L (6-16); Blood Urea Nitrogen 27 mg/dL (8-24); CO2, Blood 22 mmol/L (21-32); Calcium, Blood 7.6 mg/dL (8.5-10.1); Chloride, Blood 109 mmol/L (98-108); Creatinine, Blood 0.84 mg/dL (0.60-1.20); Glomerular Filtration Rate >60 (60-); Glucose, Blood 161 mg/dL (70-99); Magnesium, Blood 2.1 mg/dL (1.6-2.4); Phosphorus, Blood 2.7 mg/dL (2.5-4.9); Sodium, Blood 139 mmol/L (136-145)
[2018-07-31 04:19] LABS: PCO2 Arterial 30.8 mmHg (35-45); PO2 Arterial 74.4 mmHg (80-100); pH Blood Arterial 7.41 (7.35-7.45)
--- NOTE | 2018-07-31 04:55 | NUR ---
DR. LEMON CALLED DR. LEMON AT THIS TIME TO VERIFY SBT THIS AM. DR. LEMON INSTRUCTED TO NOT COMPLETE SBT THIS AM. INFORMED RT BERYL AT THIS TIME.
--- NOTE | 2018-07-31 05:05 | NUR ---
SHIFT ASSESSMENT NO ACUTE CHANGES NOTED T/O SHIFT. PT RESPONDS TO VERBAL STIMULI WITH DECREASED SEDATION, PT RESPONDS TO PAINFUL STIMULI, FACIAL GRIMACING WITH ORAL CARE, SLIGHT GAG/COUGHINGNOTED WITH DEEP ORAL CARE, OPENED EYES SPONT WITH DECREASED SEDATION, SLUGGISH PUPIL RESPONSES, TRACKS VOICES, LOCALIZES PAIN, DOES NOT NOD HEAD Y/N TO QUESTIONS, FOLLOWED SIMPLE COMMANDS (ABLE TO CORE CUTTER AND REAMER ON COMMAND AND WIGGLE FT ON COMMAND). PROPOFOL DRIP CURRENTLY AT 40 MCG/KG/MIN - CONT TO TITRATE DRIP TO EFFECT. COMPLETED SEDATION VACATION THIS SHIFT. ANGELIA SENSATION. PT DUMONT WITH DECREASED SEDATION. WEAK MOVEMENT NOTED. NO S/SX OF PAIN/DISCOMFORT NOTED EXCEPT FACIAL GRIMACING WITH ORAL CARE. LUNGS COARSE, DIMINISHED MIDDLE AND LOWER LOBES. VENT SETTINGS: AC 12, TV 500, PEEP 5, FIO2 40%. OXY SAT 90% AND GREATER. DIFFICULTY OBTAINING ACCURATE SPO2 READING T/O SHIFT (SEE PREVIOUS NN). ABG COMPLETED THIS AM. RR 14 TO 30'S. SX VIA ETT: SMALL AMOUNTS OF THICK WHITE SECRETIOSN. TMAX 100.5 - FAN ON, BLANKETS OFF, ROOM TEMP DOWN, ICE BAGS IN [place]. ACCELERATED JUNCTIONAL RHYTHM. HR 80'S TO 100'S. BP STABLE (SEE VS FS) WHILEON DOPAMINE DRIP. DOPAMINE DRIP 12 MCG/KG/MIN - CONT TO TITRATE TO EFFECT. HEPARIN DRIP AT 18 UNITS/KG/MIN AT A DOSING WEIGHT 83 KG (29.9 ML/HR). FAINT PULSES. TRACE EDEMA. SKIN COOL, PALE, CYANOTIC, MOTTLED. SKIN MOTTLED UP TO BILAT KNEES AND FINGERS. INCREASED HR, BP, RR, TEMP NOTED WITH DECREASED SEDATION. INCREASED AGITATION AND RESTLESSNESS NOTED WITH DECREASED SEDATION. HYPOACTIVE BT X4 QUADRANTS. ABD SOFT, NONTENDER, MILD DIST. OG IN PLACE. TF: PIVOT 1.5 @ GOAL RATE AT 40 ML/HR AND 30 ML FLUSH Q4 HR. RESIDUAL WNL. F/C: DARK YELLOW URINE. CL R IJ. NS AT 125 ML/HR. WILL CONT TO MONITOR AND PROVIDE BEDSIDE REPORT TO ONCOMING NURSE THIS AM..
--- NOTE | 2018-07-31 06:56 | NUR ---
DR. JUNIOR PACHECO IN TO SEE PT AT THIS TIME. NO NEW ORDERS AT THIS TIME.
[2018-07-31 06:59] LABS: Alanine Aminotransfer (ALT/SGP 284 U/L (12-78); Aspartate Aminotrans (AST/SGOT 492 U/L (12-37)
--- NOTE | 2018-07-31 08:30 | NUR ---
CARE ASSUMED CARE AND REPORT ASSUMED FROM NICANOR HANSON. PT INTUBATED ON VENT AC 12, TV 500, PEEP5, FIO2 40%. LUNG SOUNDS CLEAR THROUGHOUT. SEDATED WITH PROPOFOL GTT AT 30 MCG. SEDATION VACATION LASTING 20 MINUTES AND PT OPENED EYES ON COMMANDS AND WAS ABLE TO SQUEEZE HANDS. BLE WEAK WHEN ASKED TO MOVE LEGS AND FEET. BUE RESTAINED. SOME OF THE FINGERS AND TOES ARE PURPLISH AND CYANOTIC IN COLOR AND COLD TO TOUCH. PULSES ARE THREADY AND IT IS DIFFICULT TO OBTAIN SPO2 AT THIS TIME. NSR WITH PVCS, JUNCTIONAL RHYTHM PER CARDIO, HR 70S. DOPAMINE GTT INFUSING AT 8 MCG AT THIS TIME, MAP 65-70. HEPARIN GTT INFUSING TA 18 UNITS/HR. NS INFUSING AT 125 ML/HR PER ORDER. PROPOFOL GTT INFUSING AT 30 MCG. TOLERATING TF AT GOAL RATE, 40 ML/HR WITH MINIMAL RESIDUAL. WILL CONTINUE TO MONITOR.
--- NOTE | 2018-07-31 12:46 | NUR ---
REASSESSMENT PT REMAINS INTUBATED AND SEDATED. VENT AC 12, 500, PEEP 5, FIO2 40%. LUNG SOUNDS CLEAR. PROPOFOL GTT INFUSING AT 30 MCG. DOPAMINE GTT INFUSING AT 10 MCG. BUE RESTRAINED. TOLERATING TF AT GOAL RATE. NS INFUSING AT 125ML/HR PER ORDER. HOB ELEVATED AND PT TURNED. ATTEMPTED 2X TO CALL BERTA, PTS NEXT OF KIN AND NO ANSWER. MESSAGE LEFT ON VOICEMAIL TO HAVE HER CALL BACK. WILL CONTINUE TO MONITOR.
--- NOTE | 2018-07-31 18:27 | NUR ---
SHIFT SUMMARY PT REMAINED INTUBATED AND SEDATED ENTIRE SHIFT EXCEPT 20 MINUTE SEDATION VACATION. VENT ON AC ENTIRE SHIFT. BUE REMAIN RESTRAINED. TOLERATED TF AT GOAL RATE WITH MINIMAL RESIDUALS ENTIRE SHIFT. DOPAMINE GTT INFUSED ENTIRE SHIFT; ATTEMPTED TO DECREASE. LUNG SOUNDS CLEAR VS. COARSE. HEPARIN GTT HAS INFUSED AT 18 UNITS/HR PER PHARMACY. NS INFUSING AT 125 ML/HR PER ORDER. PROPOFOL GTT CURRENTLY AT 30 MCG. PT HAD MANY LIQUID BOWEL MOVEMENTS; RECTAL TUBE INSERTED AT 1600. WILL GIVE BEDSIDE, HANDOFF REPORT TO VICKY RN.
--- NOTE | 2018-07-31 20:00 | NUR ---
PT CONT INTUBATED & W WRISTS RESTRAINED BILAT. PT SEDATED W PROPOFOL 30MCG/KG/MIN. PT IS ALSO ON DOPAMINE 7MCG/KG/MIN, & HEPARIN GTT. PT GENERALLY UNRESPONSIVE MAKES NO SPONT MOVEMENT. BP 80'S W MAP 65. PT EXTREM COOL, FINGERS DUSKY, SOME MOTTLING TO KNEES, THO NOTED IMPROVED FROM YEST. FIO2 IS 35%, ETT SXN FOR MOSTLY WHITISH SECRETIONS. TF IS AT GOAL.
--- NOTE | 2018-08-01 | NUR ---
DOPAMINE WAS TITRATED TO 8MCG. PT CONT W LOW GRADE TEMP. PT GRIMACES W TURNING & TONGUES AT ORAL SWABS FOR MOUTH CARE. WRIST RESTRAINTS REMAIN IN PLACE.
--- NOTE | 2018-08-01 06:00 | NUR ---
PROPOFOL WAS DECREASED TO 25MCG/KG/MIN. PT NOTED TO RAISE L HAND TOWARD ETT & OCCAS COUGH, EYES PARTIALLY OPEN. PT HANDS & FINGERS SEEM LESS DUSKY. DOPAMINE CONTINUES AT 8MCG/KG/MIN. PT WAS BATHED & PARTIAL SHAVE, NO SKIN BREAKDOWN. NO INQURY FROM FRIEND/FAMILY DURING NOC. REPORT TO DAYSHIFT.
[2018-08-01 06:13] LABS: Alanine Aminotransfer (ALT/SGP 299 U/L (12-78); Albumin, Blood 2.3 g/dL (3.4-5.0); Albumin/Globulin Ratio 0.7 (0.8-1.8); Alk Phos 107 U/L (50-136); Anion Gap 9 mmol/L (6-16); Aspartate Aminotrans (AST/SGOT 355 U/L (12-37); Bilirubin, Total 0.3 mg/dL (0.1-1.0); Blood Urea Nitrogen 29 mg/dL (8-24); Bun/Creatinine Ratio 30.2 (12.0-20.0); CO2, Blood 21 mmol/L (21-32); Calcium, Blood 7.7 mg/dL (8.5-10.1); Chloride, Blood 110 mmol/L (98-108); Creatinine, Blood 0.96 mg/dL (0.60-1.20); Globulin, Blood 3.4 g/dL (2.2-4.0); Glomerular Filtration Rate >60 (60-); Glucose, Blood 158 mg/dL (70-99); Potassium, Blood 4.3 mmol/L (3.5-5.5); Sodium, Blood 140 mmol/L (136-145); Total Protein, Blood 5.7 g/dL (6.4-8.2)
--- NOTE | 2018-08-01 07:20 | NUR ---
START OF SHIFT NOTE: PATIENT IS MECHANICALLY VENTILATED SETTINGS ARE 12/5, VT 500, AND FiO2 35 %, PATIENT IS ALSO ON DOPAMINE AT 8, HEPARIN AT 19, AND PROPOFOL AT 25, ABLE TO OPEN EYES DURING ORAL CARE, UNABLE TO FOLLOW COMMANDS, NS INFUSING AT 125/HR, ANCEF HUNG, PATIENT IS IN RESTRAINTS, ELEVATED TEMP AT 100.2, APPEARS LESS MOTTLED ON LOWER EXTREMITIES AND FINGERS AND NAIL BEDS ARE PINK, RT IN TO SEE PATIENT, DRESSING ON RIJ C/D/I, CALL LIGHT IN REACH, WILL CONTINUE TO MONITOR.
--- NOTE | 2018-08-01 08:46 | NUR ---
DR. PACHECO IN TO SEE PATIENT, WAITING FOR FAMILY TO CALL OR TO VISIT.
--- NOTE | 2018-08-01 11:03 | NUR ---
PATIENT'S FRIEND BERTA WAS CONTACTED VIA PHONE, NO ANSWER, MESSAGE LEFT, WILL TRY TO GET IN TOUCH WITH HER.
--- NOTE | 2018-08-01 14:45 | NUR ---
aPTT 55, PER PHARMACY KEEP HEPARIN DRIP AT 19 UNITS/HR.
--- NOTE | 2018-08-01 16:01 | NUR ---
PATIENT WAS ON PROPOFOL AT 25 MCG SINCE SHIFT CHANGE THIS AM, STARTED TO BECOME RESTLESS AROUND 1500 HOURS, O2 DESATING INTO UPPER 80'S, SUCTIONED, PATIENT NOT FOLLOWING COMMANDS, BUT WILL OPEN EYES SPONTANEOUSLY, FOUND WITH LEGS HANGING OVER SIDE, PROPOFOL WAS INCREASED TO 45 MCG FOR 30 MINUTES, PATIENT WAS REPOSITIONED, CALMED DOWN, O2 SATS BACK IN MID 90'S, PROPOFOL DECREASED TO 35 MCG, PATIENT APPEARS TO BE RESTING COMFORTABLY, CALL LIGHT IN REACH, WILL CONTINUE TO MONITOR.
--- NOTE | 2018-08-01 17:43 | NUR ---
SHIFT SUMMARY NOTE: PATIENT CONTINUES TO BE MECHANICALLY VENTILATED, SETTINGS ARE 12/5/500/FiO2 35 %, O2 SATS ARE IN MID TO UPPER 90'S, LUNG SOUNDS DIMINISHED IN ALL LOBES, NSR WITH OCCASIONAL ACCELERATED JUNCTIONAL RHYTHM, SBP'S ARE IN 110'S WITH DOPAMINE INFUSING AT 8, NS INFUSING AT A RATE OF 125 CC/HR, HEPARIN CONTINUES TO BE AT 19 AFTER NOON aPTT DRAW, PROPOFOL AT 35 AT THIS TIME, PATIENT WILL OPEN EYES SPONTANEOUSLY, BUT IS UNABLE TO FOLLOW COMMANDS, BOWEL TONES HYPOACTIVE, RECTAL TUBE IN PLACE, ONLY ABOUT 50 CC OF LIGHT BROWN WATERY STOOL NOTED, CHARLES CATHETER IN PLACE, INCREASED U/O OF 1150 CC CLEAR YELLOW URINE, SKIN APPEARANCE IS LESS MOTTLED, EXTREMITIES WARM TO TOUCH, CONTINUES TO RUN A LOW GRADE FEVVER OF 99.9, TRIED TO CONTACT HIS FRIEND BERTA, BUT NO ANSWER ON HER CELL PHONE, LEFT MESSAGES TWICE, DR. PACHECO AND DR. LEMON CALLED WELL AND LEFT MESSAGES, FRIEND ISAK VISITED AND WILL ALSO HELP WITH CONTACTING BERTA, CALL LIGHT IN REACH, WILL CONTINUE TO MONITOR AND GIVE REPORT TO ONCOMING TRAFFIC OPERATIONS ENGINEER.
--- NOTE | 2018-08-01 19:44 | NUR ---
ASSUMED CARE BEDSIDE REPORT RECIEVED. PT IS RESTING QUIETLY SEDATED ON VENT. VENT AC 12, TV 500, PEEP 5, FIO2 35%. VITAL SIGNS STABLE AT THIS TIME. CL TO RIJ C/D/I. DOPAMINE INFUSING AT 8 MCG/KG/MIN, PROPOFOL AT 35 MCG/KG/MIN, HEPARIN AT 19 UNITS/KG/HR PER PHARMACY, AND NS AT 125 ML/HR. OGT IN PLACE WITH TF AT 40 ML/HR GOAL RATE. MINIMAL RESIDUALS NOTED. CHARLES IN PLACE WITH YELLOW OUTPUT NOTED. RECTAL TUBE IN PLACE WITH LIQUID BROWN OUTPUT NOTED. SBW RESTRAINTS IN PLACE. EXTREMITIES ARE PINK AND WARM. NO FAMILY AT BEDSIDE. WILL CONTINUE TO MONITOR.
[2018-08-02 04:39] LABS: BASOPHILS ABSOLUTE AUTO 0.03 K/mm3 (0.00-0.23); BASOPHILS PERCENT AUTO 0 % (0-2); EOSINOPHILS ABSOLUTE AUTO 0.13 K/mm3 (0.00-0.68); EOSINOPHILS PERCENT AUTO 2 % (0-6); Hematocrit 30.5 % (37.0-53.0); Hemoglobin 9.5 g/dL (13.5-17.5); IMMATURE GRAN ABSOLUTE AUTO 0.03 K/mm3 (0.00-0.10); IMMATURE GRAN PERCENT AUTO 0 % (0-1); LYMPHOCYTES ABSOLUTE AUTO 1.34 K/mm3 (0.84-5.20); LYMPHOCYTES PERCENT AUTO 18 % (21-46); MONOCYTES ABSOLUTE AUTO 0.52 K/mm3 (0.16-1.47); MONOCYTES PERCENT AUTO 7 % (4-13); Mean Corpuscular HGB 29.1 pg (26.0-34.0); Mean Corpuscular HGB Conc 31.1 g/dL (31.5-36.5); Mean Corpuscular Volume 94 fL (80-100); Mean Platelet Volume 11.3 fL (9.1-12.4); NEUTROPHILS ABSOLUTE AUTO 5.41 K/mm3 (1.96-9.15); NEUTROPHILS PERCENT AUTO 73 % (41-73); NRBC ABSOLUTE 0.09 K/mm3 (0.00-0.02); NRBC Auto 1.2 /100 WBC (0.0-0.2); Platelet Count 226 K/mm3 (150-400); RDW Coefficient Variation 13.9 % (11.7-14.2); RDW Standard Deviation 47.2 fL (35.1-46.3); Red Blood Cell Count 3.26 M/mm3 (4.30-5.90); White Blood Cell Count 7.46 K/mm3 (4.00-11.30)
[2018-08-02 05:00] LABS: Alanine Aminotransfer (ALT/SGP 231 U/L (12-78); Albumin, Blood 2.2 g/dL (3.4-5.0); Albumin/Globulin Ratio 0.6 (0.8-1.8); Alk Phos 97 U/L (50-136); Anion Gap 7 mmol/L (6-16); Aspartate Aminotrans (AST/SGOT 208 U/L (12-37); Bilirubin, Total 0.5 mg/dL (0.1-1.0); Blood Urea Nitrogen 25 mg/dL (8-24); Bun/Creatinine Ratio 30.3 (12.0-20.0); CO2, Blood 24 mmol/L (21-32); Calcium, Blood 7.6 mg/dL (8.5-10.1); Chloride, Blood 112 mmol/L (98-108); Creatinine, Blood 0.82 mg/dL (0.60-1.20); Globulin, Blood 3.5 g/dL (2.2-4.0); Glomerular Filtration Rate >60 (60-); Glucose, Blood 136 mg/dL (70-99); Magnesium, Blood 2.2 mg/dL (1.6-2.4); Phosphorus, Blood 2.9 mg/dL (2.5-4.9); Potassium, Blood 3.9 mmol/L (3.5-5.5); Sodium, Blood 143 mmol/L (136-145); Total Protein, Blood 5.7 g/dL (6.4-8.2)
[2018-08-02 05:46] LABS: PO2 Arterial 79.4 mmHg (80-100); pH Blood Arterial 7.42 (7.35-7.45)
--- NOTE | 2018-08-02 05:57 | NUR ---
SHIFT SUMMARY NO ACUTE CHANGES THIS SHIFT. PT HAS REMAINED SEDATED ON VENT. PT DID WELL ON SBT THIS AM AND WAS ABLE TO FOLLOW COMMANDS APPROPRIATELY AND NOD HEAD TO QUESTIONS APPROPRIATELY. VENT REMAINS AT AC 12, TV 500, PEEP 5, FIO2 35%. PROPOFOL BACK ON AT 35 MCG/KG/MIN, NS AT 125 ML/HR, HEPARIN AT 19 UNITS/KG/HR, AND DOPAMINE AT 8 MCG/KG/MIN. TF REMAINS AT 40 ML/HR GOAL RATE WITH MINIMAL RESIDUALS NOTED. CHARLES IN PLACE WITH GOOD URINE OUTPUT NOTED. RECTAL TUBE REMAINS IN PLACE. SBW RESTRAINTS IN PLACE. DR PACHECO IN THIS MORNING TO SEE PT AND DISCUSS PLAN OF CARE. WILL CONTINUE TO MONITOR AND REPORT OFF TO ONCOMING RN.
--- NOTE | 2018-08-02 07:42 | NUR ---
START OF SHIFT NOTE: PATIENT CONTINUES ON MECHANICAL VENTILATION, SETTINGS 12//500/FiO2 35 %, HR IN 90'S TO LOW 100'S WITH A-FLUTTER, LUNG SOUNDS ARE DIMINISHED AND COARSE, RIGHT IJ DRESSING C/D/I, ALL PORTS FLUSH WELL AND HAVE GOOD BLOOD RETURN, HEPARIN INFUSING AT 20, PROPOFOL AT 35, DOPAMINE AT 8, BLOOD PRESSURES ARE IN LOW 100'S AT THIS TIME, TUBE FEED INFUSING AT GOAL 40 CC/HR WITH 30 CC WATER FLUSHES EVERY 4 HOURS, RECTAL TUBE IN PLACE AND DRAINING BROWN LIQUID STOOL, CHARLES CATHETER IN PLACE DRAINING DARK YELLOW CLEAR URINE, PATIENT WAS REPOSITIONED, AND ORAL CARE PROVIDED, FRIEND JAMES AT BEDSIDE BRIEFLY, CALL LIGHT IN REACH, WILL CONTINUE TO MONITOR.
--- NOTE | 2018-08-02 09:51 | NUR ---
PATIENT APPEARS MORE AWAKE DESPITE BEING ON 35 MCG OF PROPOFOL, TRYING TO SIT UP AND OPENING EYES SPONTANEOUSLY, HOWEVER, DOES NOT WANT TO FOLLOW COMMANDS, EVEN THOUGH PATIENT IS ABLE TO DO SO, CALL LIGHT IN REACH, WILL CONTINUE TO MONITOR.
--- NOTE | 2018-08-02 10:35 | NUR ---
FRIEND IN TO SEE PATIENT, PATIENT OPENED EYES AND WAS ABLE TO NOD AND SHAKE HEAD FOR SOME OF FRIENDS QUESTIONS, CALL LIGHT IN REACH, WILL CONTINUE TO MONITOR.
--- NOTE | 2018-08-02 10:45 | NUR ---
DR. JIANG IN TO SEE PATIENT, NEW ORDERS RECEIVED.
--- NOTE | 2018-08-02 11:02 | NUR ---
DR. JIANG IN TO SEE PATIENT, PLACED ON SPONTANEOUS BREATHING TRIAL, PROPOFOL AT 10 MCG, PATIENT OPENING EYES AND TRYING TO MOUTH WORDS, RT IN TO CHANGE PATIENT FROM A/C TO PRESSURE SUPPORT, CALL LIGHT IN REACH, WILL CONTINUE TO MONITOR.
--- NOTE | 2018-08-02 11:39 | NUR ---
I was stopped in the brewer way outside of patient's room by a friend of the patient, Luis Eduardo Brewer, who requested that I go in a visit with the patient. I entered the patient's room and introduced myself. Patient did not speak to me but opened his eyes and acknowldged me. I explained about our mutual acquaintances and patient opened up his eyes a little more. I asked patient if I could pray for him and he shook his head affirmingly. I provided prayer and patient closed his eyes during the prayer and opened them at it's conclusion Patient shook his head in a positive manner to acknowlegde his agrrement with the prayer. I then told a few stories that Luis Eduardo had told me about the quality and likability of the patient and stated that he had many friends praying for him and pulling for him. I shook patient's hand and encouraged his drive to continue to get well.
--- NOTE | 2018-08-02 11:59 | NUR ---
PATIENT WAS EXTUBATED BY RT AT 11:50 HOURS, TOLERTED WELL, SECRETIONS SUCTIONED, PATIENT PLACED ON 2L NC, PATIENT ABLE TO HOLD SUCTION DEVICE AND SUCTION SELF, PATIENT'S FIRST WORDS AFTER EXTUBATION WERE "I WANT TO LIVE", ALSO STATED "I AM SO TIRED", PATIENT NPO, SPEECH IS ORDERED, CALLLIGHT IN REACH, WILL CONTINUE TO MONITOR.
--- NOTE | 2018-08-02 13:40 | NUR ---
PATIENT REQUESTED SPIRITUAL SUPPORT, FATHER CLEATUS IN WITH PATIENT AT THIS TIME.
--- NOTE | 2018-08-02 14:50 | NUR ---
DR. VALDEZ IN TO SEE PATIENT, NO NEW ORDERS RECEIVED.
--- NOTE | 2018-08-02 15:18 | NUR ---
review of pt needs with nursing staff and ethics needs with cindi cameron.
--- NOTE | 2018-08-02 16:25 | NUR ---
DR. JIANG NOTIFIED ABOUT PROCALCITONIN, NO NEW ORDERS RECEIVE.
--- NOTE | 2018-08-02 18:20 | NUR ---
SHIFT SUMMARY: PATIENT WAS EXTUBATED AT 11:50 TODAY, DOING EXTREMELY WELL, ON 2L NC, ABLE TO PROTECT AIR WAY, GOOD COUGH, NPO AT THIS TIME, WILL HAVE SPEECH EVALUATION IN AM D/T ORAL MEDICATION, LUNG SOUNDS ARE CLEAR BUT DIMINISHED, NSR WITH OCCASIONAL EPISODES OF A-FIB/A-FLUTTER, HEPARIN INFUSING AT 22 UNITS, DOPAMINE WAS TITRATED DOWN TO 4, PATIENT IS TOLERATING WELL, SOFT SPOKEN, COOPERATIVE, ABLE TO USE CALL LIGHT AND MAKE NEEDS KNOWN, LEAKAGE AROUND RECTAL TUBE D/T FORMED STOOLS, RECTAL TUBE REMOVED PER DR. JIANG, PATIENT IS ABLE TO USE CALL LIGHT WHEN HE HAS TO HAVE A BM, CENTRAL LINE IN RIGHT IJ CONTINUES TO FLUSH WELL AND HAVE GOOD BLOOD RETURN, FOR DETAILS SEE SHIFT ASSESSMENT DOCUMENTATION AND NURSES NOTES, CALL LIGHT IN REACH, WILL CONTINUE TO MONITOR AND GIVE REPORT TO ONCOMING LEAD CAREGIVER.
--- NOTE | 2018-08-02 18:31 | NUR ---
Silverio was weak. He admitted to me he is fearful God will not forgive him for "trying to overdose on meth." He was tearful and would not elaborate. "There's too much to talk about now." He responded well to spiritual direction and prayer. He will certainly benefit from continued spiritual business and financial counsel and encouragement.
--- NOTE | 2018-08-02 20:10 | NUR ---
ASSUMED CARE BEDSIDE REPORT RECIEVED. PT IS RESTING IN BED AWAKE, ALERT, AND ORIENTED. PT IS VERY PLEASANT AND APPRECIATIVE OF CARE. PT FOLLOWS COMMANDS APPROPRIATELY. PT DENIES PAIN, DISCOMFORT, SOB, OR NAUSEA. VITAL SIGNS STABLE AT THIS TIME WITH DOPAMINE AT 4 MCG/KG/MIN. PT ON 2L O2 NC. HEPARIN AT 22 UNITS/KG/HR PER PHARMACY. CL TO R IJ C/D/I. CHARLES IN PLACE WITH YELLOW OUTPUT NOTED. PT ASSISTS WITH TURNING WELL. WILL CONTINUE TO MONITOR.
[2018-08-03 04:37] LABS: BASOPHILS ABSOLUTE AUTO 0.02 K/mm3 (0.00-0.23); BASOPHILS PERCENT AUTO 0 % (0-2); EOSINOPHILS PERCENT AUTO 1 % (0-6); Hematocrit 27.3 % (37.0-53.0); Hemoglobin 8.6 g/dL (13.5-17.5); IMMATURE GRAN ABSOLUTE AUTO 0.02 K/mm3 (0.00-0.10); IMMATURE GRAN PERCENT AUTO 0 % (0-1); LYMPHOCYTES PERCENT AUTO 16 % (21-46); MONOCYTES ABSOLUTE AUTO 0.51 K/mm3 (0.16-1.47); MONOCYTES PERCENT AUTO 6 % (4-13); Mean Corpuscular HGB 29.4 pg (26.0-34.0); Mean Corpuscular HGB Conc 31.5 g/dL (31.5-36.5); Mean Corpuscular Volume 93 fL (80-100); NEUTROPHILS ABSOLUTE AUTO 5.99 K/mm3 (1.96-9.15); NEUTROPHILS PERCENT AUTO 75 % (41-73); NRBC ABSOLUTE 0.04 K/mm3 (0.00-0.02); NRBC Auto 0.5 /100 WBC (0.0-0.2); Platelet Count 204 K/mm3 (150-400); RDW Standard Deviation 47.4 fL (35.1-46.3); Red Blood Cell Count 2.93 M/mm3 (4.30-5.90); White Blood Cell Count 7.94 K/mm3 (4.00-11.30)
[2018-08-03 05:03] LABS: Anion Gap 7 mmol/L (6-16); Blood Urea Nitrogen 23 mg/dL (8-24); Bun/Creatinine Ratio 28.5 (12.0-20.0); CO2, Blood 23 mmol/L (21-32); Calcium, Blood 7.8 mg/dL (8.5-10.1); Chloride, Blood 113 mmol/L (98-108); Creatinine, Blood 0.81 mg/dL (0.60-1.20); Glomerular Filtration Rate >60 (60-); Glucose, Blood 102 mg/dL (70-99); Magnesium, Blood 2.2 mg/dL (1.6-2.4); Phosphorus, Blood 3.7 mg/dL (2.5-4.9); Sodium, Blood 143 mmol/L (136-145)
[2018-08-03 05:05] LABS: PCO2 Arterial 34.1 mmHg (35-45); PO2 Arterial 71.2 mmHg (80-100); pH Blood Arterial 7.45 (7.35-7.45)
--- NOTE | 2018-08-03 06:03 | NUR ---
DR JUNIOR PACHECO IN TO SEE PT. EXTENSIVE CONVORSATION WITH PT ABOUT PLAN OF CARE AND CODE STATUS. PT WISHES TO BE FULL CODE AT THIS TIME. DR PACHECO TO PUT IN ORDERS. WILL CONTINUE TO MONITOR.
--- NOTE | 2018-08-03 06:04 | NUR ---
SHIFT SUMMARY PT DID WELL THIS SHIFT. PT HAS SLEPT OFF AND ON THROUGHOUT THE NIGHT AND AWAKENS EASILY TO VERBAL STIMULI. PT IS ALERT AND ORIENTED WHEN AWAKE. PT HAS DENIED PAIN OR DISCOMFORT. PT ON 2L O2 NC. VITAL SIGNS HAVE REMAINED STABLE AND DOPAMINE TITRATED DOWN TO 1 MCG/KG/MIN AT THIS TIME. HEPARIN INFUSING AT 23 UNITS/KG/HR PER PHARMACY. CL TO RIJ C/D/I. CHARLES IN PLACE WITH GOOD URINE OUTPUT THIS SHIFT. PT WITH MULTIPLE LIQUID BOWEL MOVEMENTS THIS SHIFT. PT ABLE TO ASSIST ON TO BED CALVO WELL. WILL CONTINUE TO MONITOR AND REPORT OFF TO ONCOMING RN.
--- NOTE | 2018-08-03 07:00 | NUR ---
Recieved report from Jose HANSON. Patient sitting up in bed with HOB at 30m degrees. He is quiet but able to communicate his needs, alert and oriented . He is on 2L O2 via NC and sats mid 90%'s. He is cooperative with his care. He has RIJ central line dressing intact and site WNL's and is infusing Dopamine at 1mcg, NS TKO, and Heparin at 23 mcg/kg/hr and systolic 130.
--- NOTE | 2018-08-03 09:00 | NUR ---
Patient up in chair and getting bath just prior to break fast. He was a two person assist up to chair. Dopamine on standby and systolic still 130, HR 80 NSR. He will remain upfor breakfast. He remains on 2L O2 and sats in the mid to upper 90%'s. He has has a few visitors in and prayed with him. retail planner by and talked with patient, Heparin increased to 24 mcg/kg/hr.
--- NOTE | 2018-08-03 09:08 | NUR ---
PARTIAL ECHOCARDIOGRAM COMPLETED
--- NOTE | 2018-08-03 09:30 | NUR ---
Patient has been resting, tolerated po meds and small amount of breakfast. Cardiology has been by and will write for some new meidcations and keep heparin at current rate. He MAEW but weak. He remains on 2 L O2 via NC and sats 97%. Son called to check on him.
--- NOTE | 2018-08-03 12:51 | NUR ---
Patient back into bed and resting, he has vistor coming in to see him. No other significant changes. Dr Schmidt has seen patient and started on Lasix,
--- NOTE | 2018-08-03 13:27 | NUR ---
Pt. is doing well he reports sitting up in his bed encouraged pt. and prayed for him.
--- NOTE | 2018-08-03 14:38 | NUR ---
No significant changes with patient or heparin gtt, dopamine remains off and no changes with O2. VSS. Patient resting and awakens easily for care, he is very thankful for what we are doing for him.
--- NOTE | 2018-08-03 16:12 | NUR ---
Patient in working with PT/OT and is now currently up in chair. He remains on Heparin gtt at 24 units/kg/hr and NS TKO. VSS. He denies ant current needs and calls appropriately .
--- NOTE | 2018-08-03 18:30 | NUR ---
Patient has transfered back to bed with two assist and is able to assist with positioning. He remains on 2L O2 and sats mid 90%. He is very polite and respectful with care. His Heparin infusing RIJ remains at 24 unit/kg/hr. He has friend visiting currently.
--- NOTE | 2018-08-03 20:00 | NUR ---
ASSUMED CARE OF PT AT 1900. REPORT RECEIVED. PT PRESENTS IN BED. ALERT AND ORIENTED. DOES HAVE VISITOR AT BEDSIDE. PT CONTINUES ON HEPARIN DRIP AT 24/U/KG PER RIGHT IJ. WILL REVIEW CHART AND PLAN OF CARE FOR THIS PT.
--- NOTE | 2018-08-04 | NUR ---
PT RESTING IN BED AT THIS TIME. VSS. HAS NOT REQUIRED PRESSORS THIS NIGHT. CONTINUES ON HEPARIN. PT DENIES PAIN OR DISTRESS. NO COMPLAINTS OF CHEST PAIN OR PRESSURE. IS ABLE TO MOVE HIMSELF ABOUT IN BED ON HIS OWN. WILL CONTINUE TO MONITOR.
--- NOTE | 2018-08-04 03:00 | NUR ---
PT AWAKENS AND STATES HE FEELS VERY "PARANOID" HE HAD REMOVED HIS EKG LEADS AND WHEN THIS RN CHECKS ON PT HE HAD GOTTEN HIMSELF OUT OF BED AND WAS ACCROSS HIS ROOM SITTING IN CHAIR. UNFORTUNATELY PT HAD PULLED HIS IJ CENTRAL LINE. MODERATE AMOUNT OF BLEEDING FROM SITE. DIRECT PRESSURE HELD AT SITE. PT TRANSFERED BACK TO BED WITH 2 PERSON ASSIST. LINEN CHANGE AND GOWN CHANGE DONE. PT WAS SAYING THAT SOMEONE PLACED A CRACK PIPE IN HIS ROOM AND WAS BLAMING HIM FOR DOING SO. REORIENTED PT SEVERAL TIMES TO HELP PT UNDERSTAND THAT HE IS IN THE HOSPITAL. NEW IV STARTED IN RIGHT WRIST. BED ALARM PLACE ON. PT MORE ALERT AND APOLOGIZES FOR GETTING OUT OF BED AND FOR BEING CONFUSE.
[2018-08-04 03:35] LABS: BASOPHILS ABSOLUTE AUTO 0.03 K/mm3 (0.00-0.23); BASOPHILS PERCENT AUTO 0 % (0-2); EOSINOPHILS ABSOLUTE AUTO 0.11 K/mm3 (0.00-0.68); EOSINOPHILS PERCENT AUTO 1 % (0-6); Hematocrit 28.9 % (37.0-53.0); IMMATURE GRAN ABSOLUTE AUTO 0.05 K/mm3 (0.00-0.10); IMMATURE GRAN PERCENT AUTO 1 % (0-1); LYMPHOCYTES ABSOLUTE AUTO 1.47 K/mm3 (0.84-5.20); LYMPHOCYTES PERCENT AUTO 16 % (21-46); MONOCYTES ABSOLUTE AUTO 0.65 K/mm3 (0.16-1.47); MONOCYTES PERCENT AUTO 7 % (4-13); Mean Corpuscular HGB 29.5 pg (26.0-34.0); Mean Corpuscular HGB Conc 31.1 g/dL (31.5-36.5); Mean Corpuscular Volume 95 fL (80-100); NEUTROPHILS ABSOLUTE AUTO 6.78 K/mm3 (1.96-9.15); NEUTROPHILS PERCENT AUTO 75 % (41-73); Platelet Count 219 K/mm3 (150-400); RDW Standard Deviation 48.4 fL (35.1-46.3); Red Blood Cell Count 3.05 M/mm3 (4.30-5.90); White Blood Cell Count 9.09 K/mm3 (4.00-11.30)
[2018-08-04 03:56] LABS: Anion Gap 8 mmol/L (6-16); Blood Urea Nitrogen 22 mg/dL (8-24); Bun/Creatinine Ratio 25.9 (12.0-20.0); CO2, Blood 24 mmol/L (21-32); Calcium, Blood 8.2 mg/dL (8.5-10.1); Chloride, Blood 109 mmol/L (98-108); Creatinine, Blood 0.85 mg/dL (0.60-1.20); Glomerular Filtration Rate >60 (60-); Glucose, Blood 116 mg/dL (70-99); Magnesium, Blood 1.9 mg/dL (1.6-2.4); Phosphorus, Blood 3.7 mg/dL (2.5-4.9); Potassium, Blood 3.7 mmol/L (3.5-5.5); Sodium, Blood 141 mmol/L (136-145)
--- NOTE | 2018-08-04 06:30 | NUR ---
PT HAS NOT MADE ANY MORE ATTEMPTS TO GET OUT OF BED. HAS NOT PULLED AT ANY LINES OR TUBES. IS MORE ALERT THIS AM. HAS REQUESTED THAT HE NOT GET ANY VISITORS TO HIS ROOM TODAY. IJ SITE WITHOUT BLEEDING. WILL CONTINUE TO MONITOR PT, AND WILL REPORT OFF TO ONCOMING RN.
--- NOTE | 2018-08-04 08:00 | NUR ---
PATIENT SOME WHAT WITHDRAWN AND FEELS BAD THAT CENTRAL LINE WAS PULLED OUT BY ACCIDENT AND FEELS STAFF IS MAD AT HIM. HE HAS BEEN REASSURED THAT IT IS OK AND ACCIDENTS HAPPEN. HE REMAINS ON 2L O2 AND SATS MID TO UPPER 90%'S. HE HAS 20GA IV, DRESSING INTACT AND SITE WNL'S AND IS INFUSING HEPARIN AT 24 UNITS/KG/HR AND NS TKO. PATIENT IS MORE INDEPENDENT IN ROOM , BUT STILL CALLS APPROPRIATLY.
--- NOTE | 2018-08-04 09:30 | NUR ---
Patient has made some confusing statemnets and was more clear yesterday. Spoke with Dr Valverde when she was here seeing patient. She dc'd heparin and started on plavix. He has been up with SBA and walks well with walker. He remains on 2L O2 via NC and sats upper 90%'s. He does not want any visitors today. Flushed IV and SL.
--- NOTE | 2018-08-04 11:20 | NUR ---
Dr Schmidt was in room and agrees that patient has some statements. She would like ius to talk with [facility] and see if possible housing or psych follow up. He is up in chair and uses walker well. He is has had PT in room working with him earlier. Patient denies any needs or pain. VSS
--- NOTE | 2018-08-04 15:32 | NUR ---
PATIENT HAS LINSEY RESTING IN ROOM, I HAVE CHECKED ON HIM AND HE HAS BEEN WATCHING INTERMITENTLY SOME TV. HE STILL MAKES CONFUSING STATEMENTS BUT CAN HOLD A CONVERSATION. VSS, NO IV GTT RUNNING AND HAS BEEN OUT OF BED WITH A 1 ASSIST TO BATHROOM.
[2018-08-04 15:47] LABS: Source, Urine Catheter
[2018-08-04 16:54] LABS: Appearance, Urine Hazy (Clear); Bilirubin, Urine Neg (Neg); Blood, Urine 3+ (Neg); Color, Urine Yellow (P-Yellow); Glucose Qualitative, Urine Neg (Neg); Ketones, Urine 1+ (Neg); Leukocyte Esterase, Urine 1+ (Neg); Nitrite, Urine Neg (Neg); Protein, Urine 3+ (Neg); Urobilinogen, Urine NORM (Normal)
[2018-08-04 17:09] LABS: Bacteria Rare /hpf; Mucus Mod (0-Heavy); Red Blood Cells, Urine Rare /hpf (0-2); Squamous Epithelial Cells Few /hpf (Few); White Blood Cells, Urine 0-2 /hpf (0-5)
--- NOTE | 2018-08-04 17:30 | NUR ---
Patient has been getting out of bed to chair and back. He has been told several times to call and forgets. He is fetting more confused with his conversations. He was just out of his room with his O2 line on and not connected to O@ when asking him why he is out of room he states getting ready to take shower. I placed him back in bed and hooked him up to the monitor and put exit alrm on and instructed him not to get out of bed. VSS stable after placing him back on O2. He is tolerating meds and meals well.
--- NOTE | 2018-08-04 20:00 | NUR ---
ASSUMED CARE OF PT AT 1900. REPORT RECEIVED AT BEDSIDE. AGREE WITH OFFGOING RN THAT PT IS MORE DISORIENTED TODAY THAN WHEN THIS RN HAD PT YESTERDAY. PT VERBALIZED THAT HE IS MAD AT "[facility]" AND THAT HE HAD BEEN SET UP CONCERNING A "CRACK PIPE". MULTIPLE ATTEMPTS TO REORIENT PT WITH MINIMAL TO MODERATE AFFECT. PT ALERT AND PLEASANT. COOPERATIVE WITH CARE AND ASSESSMENT. DENIES COMPLAINTS OF CHEST PAIN OR PRESSURE. IS CURRENTLY OFF OXYGEN AND IS MAINTAINING 90-92 PERCENT SATURATIONS. WILL CONTINUE TO MONITOR. WILL REVIEW CHART AND PLAN OF CARE FOR THIS PT.
--- NOTE | 2018-08-04 22:17 | NUR ---
PT GOT HIMSELF OUT OF BED. REMOVED ALL HIS CARDIAC LEADS, PULLED OFF HIS BLOOD PRESSURE CUFF, AND HIS OXIMETER AND WAS VERY ANGRY. SAID HE WAS GOING TO LEAVE AND DID NOT LIKE BEING, "TREATED THIS WAY!" WHEN ASKING PT TO ELABORATE ON HIS DISPLEASURE HE STATES THAT HE WAS ANGRY AT [facility] AND KNEW THAT SHE HAD TO DO WITH THE "CRACK PIPE" AND THAT SHE HAD GOTTEN FIRED FOR SETTING HIM UP. HE CLAIMS THAT "NICANOR" WAS FIRED THIS MORNING FOR THIS. RN, NICANOR CALLED TO ROOM TO SHOW THAT SHE WAS STILL WORKING AND THAT HE WAS INCORRECT. SECURITY COMES TO ROOM SECONDARY TO PT INCREASING IN AGITATION AND TWO RN'S SUSPICION THAT PT WAS TO BECOME VIOLENT TOWARDS THEM. DR SWENSON COMES TO ROOM TO ADDRESS PT CONCERNING HIS ATTEMPT TO LEAVE AMA. PT HAD JUST PRIOR CALMED AND AGREED THAT HE WAS DISORIENTED AND THAT IT WAS BEST FOR HIM TO STAY THIS NIGHT. PT DOES FIXATE ON HIS CHARLES CATHETER AND IS AT SUCH A HIGH RISK FOR PULLING THIS OUT WITH ALSO KNOWING HE HAD PULLED HIS CENTRAL LINE OUT THE NIGHT PRIOR. DID REMOVE CHARLES AND PT RETURNS TO BED. HE DOES APOLOGIZE FOR BEING SO AGRESSIVE. HE STATES THAT HE IS "SCARED" BEING CONFUSED. PT REASSURED, AND STATES HE WILL STAY THE NIGHT AND WILL SPEAK WITH HIS DOCTOR IN THE AM. DR JIANG WAS IN UNIT, AND AWARE OF EVENT. IN AGREEMENT WITH CHARLES BEING REMOVED TO REDUCE STIMULI. BED ALARM TURNED ON. CALL LIGHT GIVEN TO PT AND HE IS ENCOURAGED TO CALL FOR ASSIST. CURTAINS AT DOOR OPENED TO ALLOW FOR BETTER OBSERVATION OF PT. WILL DO FREQUENT ROUNDING FOR PT SAFETY AND HIS REASSURANCE.
--- NOTE | 2018-08-05 03:34 | NUR ---
PT HAS BEEN ABLE TO REST SOME. HAVE ASSISTED PT WITH POSITIONING FOR COMFORT SECONDARY TO HIS BACK BEING SORE. AGAIN, WHEN PT SPEAKING WITH STAFF HE WILL HOLD A RATHER LUCID CONVERSATION AND THEN STRAY FROM CONVERSATION TO HAVE DISORIENTED MOMENT. PT WAS SPEAKING OF FEELING BETTER AND BEING ABLE TO GET SOME SLEEP THIS NIGHT, THEN HE FOLLOWS THIS WITH "[facility]WN HAS STARED EARLY THIS MORNING GATHERING CAR PARTS OVER THERE..." HE POINTS TO DOORWAY. REORIENTED PT TO THE FACT HE IS IN THE HOSPITAL THEN HE MENTIONS THE CAR PARTS AGAIN. SECOND ATTEMPT TO REORIENT PT MORE SUCESSFUL. PT DENIES CHEST PAIN OR PRESSURE THIS NIGHT. HAS MAINTAINED ON ROOM AIR WITH OXYGEN SATURATIONS >90 PERCENT. WILL CONTINUE TO MONITOR PT. OF NOTE: CHARTING TO REFLECT DAYLIGHT SAVINGS TIME.
[2018-08-05 04:23] LABS: Anion Gap 11 mmol/L (6-16); Blood Urea Nitrogen 24 mg/dL (8-24); Bun/Creatinine Ratio 28.2 (12.0-20.0); CO2, Blood 23 mmol/L (21-32); Calcium, Blood 8.1 mg/dL (8.5-10.1); Chloride, Blood 110 mmol/L (98-108); Creatinine, Blood 0.85 mg/dL (0.60-1.20); Glomerular Filtration Rate >60 (60-); Glucose, Blood 103 mg/dL (70-99); Potassium, Blood 3.9 mmol/L (3.5-5.5); Sodium, Blood 144 mmol/L (136-145)
--- NOTE | 2018-08-05 06:46 | NUR ---
PT AWAKENS THIS AM. IS IN GOOD MOOD AND CONVERSES WITH MINIMAL DISORIENTATION. OFFERED PT TO GO TO SHOWER AND HE STATED THAT HE REALLY WOULD LIKE THIS. AMBULATED PT WITH TWO PERSON STANDBY ASSIST TO SHOWER. PT USES FWW APPROPRIATELY. DOES CLAIM THAT HE IS FEELING SOMEWHAT WEAK BUT IS ABLE TO AMBULATE. NEEDS SOME ASSIST IN SHOWER. IS CURRENTLY BACK TO ROOM. SITTING IN BEDSIDE CHAIR. STATES THAT THIS HAS MADE HIM FEEL SO MUCH BETTER THIS MORNING. WILL CONTINUE TO MONITOR PT, AND WILL REPORT OFF TO ONCOMING RN.
--- NOTE | 2018-08-05 07:30 | NUR ---
RECEIVED REPORT FROM MARGIE FAULKNER, AND ASSUMED CARE OF PT.
--- NOTE | 2018-08-05 08:28 | NUR ---
DR. TRIVEDI AT BEDSIDE FOR EVALUATION.
--- NOTE | 2018-08-05 20:00 | NUR ---
PATIENT RESTING IN BED A&O X3 AND COOPERATIVE. NO COMPLAINTS AT THIS TIME.
--- NOTE | 2018-08-06 06:11 | NUR ---
PATIENT SLEEPING OFF AND ON T/O THE NIGHT. C/O PAIN TO BOTH LOWER LEGS MEDICATED TWICE WITH TYLENOL. PATIENT UP AMB IN ROOM WITH ONE PERSON STANDBY ASSIST. PATIENT LEI PO WITHOUT DIFFICULTY.
--- NOTE | 2018-08-06 07:20 | NUR ---
ASSUMED CARE: PT RESTING QUIETLY AT THIS TIME. NO ACUTE NEEDS OR CONCERNS NOTED.
--- NOTE | 2018-08-06 11:20 | NUR ---
VOLUNTEER CAME TO SEE PT AND ASKED PT IF HE WANTED TO GO TO [facility]. CLARIFIED THAT VOLUNTEER WANTED TO TAKE PT TO [facility]. TELE BOX APPLIED AND READING CONFIRMED. TAKEN VIA WHEEL CHAIR. 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
--- NOTE | 2018-08-06 13:35 | NUR ---
Pt. is out for a walk and went to the [facility] for mass, he reports doing much better encouraged pt and prayed and blessed him.
--- NOTE | 2018-08-06 14:45 | NUR ---
Father Pepe is providing spiritual direction, sacrements, and prayer.
--- NOTE | 2018-08-06 18:15 | NUR ---
SHIFT SUMMARY: PT HAS BEEN ALERT, ORIENTED AND COOPERATIVE THIS SHIFT. MEDICAL STATUS WHEN BED AVAILABLE. WENT TO [facility] IN [facility] THIS AM WITH VOLUNTEER. OFF TELE PER ORDER OF DR MOORE. NO FURTHER NEEDS OR CONCERNS THIS SHIFT.
--- NOTE | 2018-08-06 22:11 | NUR ---
PATIENT RESTING QUIETLY, A&O X3 AND COOPERATIVE. PATIENT C/O LIU AND GENERAL BODY ACHE TYLENOL PO GIVEN WITH GOOD RELIEF. PATIENT VERBALIZED THAT HE HOPES HE CAN SLEEP WELL TONIGHT.
[2018-08-07 03:50] LABS: BASOPHILS ABSOLUTE AUTO 0.03 K/mm3 (0.00-0.23); BASOPHILS PERCENT AUTO 0 % (0-2); EOSINOPHILS PERCENT AUTO 3 % (0-6); Hematocrit 27.2 % (37.0-53.0); Hemoglobin 8.8 g/dL (13.5-17.5); IMMATURE GRAN ABSOLUTE AUTO 0.03 K/mm3 (0.00-0.10); IMMATURE GRAN PERCENT AUTO 0 % (0-1); LYMPHOCYTES ABSOLUTE AUTO 1.87 K/mm3 (0.84-5.20); LYMPHOCYTES PERCENT AUTO 24 % (21-46); MONOCYTES ABSOLUTE AUTO 0.53 K/mm3 (0.16-1.47); MONOCYTES PERCENT AUTO 7 % (4-13); Mean Corpuscular HGB 29.8 pg (26.0-34.0); Mean Corpuscular HGB Conc 32.4 g/dL (31.5-36.5); Mean Platelet Volume 10.5 fL (9.1-12.4); NEUTROPHILS ABSOLUTE AUTO 5.04 K/mm3 (1.96-9.15); NEUTROPHILS PERCENT AUTO 65 % (41-73); Platelet Count 297 K/mm3 (150-400); RDW Coefficient Variation 13.6 % (11.7-14.2); RDW Standard Deviation 45.8 fL (35.1-46.3); Red Blood Cell Count 2.95 M/mm3 (4.30-5.90)
[2018-08-07 03:52] LABS: Mean Corpuscular Volume 92 fL (80-100)
[2018-08-07 04:17] LABS: Anion Gap 7 mmol/L (6-16); Blood Urea Nitrogen 27 mg/dL (8-24); Bun/Creatinine Ratio 29.6 (12.0-20.0); CO2, Blood 24 mmol/L (21-32); Calcium, Blood 7.9 mg/dL (8.5-10.1); Chloride, Blood 106 mmol/L (98-108); Creatinine, Blood 0.91 mg/dL (0.60-1.20); Glomerular Filtration Rate >60 (60-); Glucose, Blood 92 mg/dL (70-99); Potassium, Blood 4.3 mmol/L (3.5-5.5); Sodium, Blood 137 mmol/L (136-145)
--- NOTE | 2018-08-07 07:46 | NUR ---
SUMMARY PATIENT SLEEPING OFF AND ON T/O NIGHT. MEDICATED WITH TYLENOL FOR LEG PAIN AND FOR FEELING OF A BURNING SENSATION TO HIS SKIN. BOTH LEGS SWOLLEN WITH EDEMA FROM MID CALF DOWN. NO RASH OR REDNESS SEEN TO SKIN. PATIENT UP IN ROOM INDEPENDENTLY TO USE TOILET.
--- NOTE | 2018-08-07 09:30 | NUR ---
INITIAL ASSESSMENT PATIENT SLEEPING SOUNDLY UPON ENTERING ROOM. PATIENT ALERT AND ORIENTED X 4, AFEBRILE. PATIENT CALM AND COOPERATIVE. PATIENT DENIES PAIN AND DISCOMFORT AT THIS TIME. PATIENT INDEPENDENT IN ROOM. PATIENT DOES STATE THAT HIS "HANDS AND FACE FEEL SUNBURNED BUT THAT THEY ARE NOT". PATIENT SATTING WELL ON RA. LUNGS CLEAR THROUGHOUT. PATIENT HR AT 67, BP STABLE. GI WNL. WNL. PATIENT HAS SCATTERED BRUISING. SCAR TO MIDLINE ABDOMEN. 1+ EDEMA NOTED TO BLES. IV FLUSHED AND SALINE LOCKED. BED LOW, CALL LIGHT IN REACH. WILL CONTINUE TO MONITOR PATIENT FREQUENTLY THROUGHOUT SHIFT.
--- NOTE | 2018-08-07 09:51 | NUR ---
PHYSICAL THERAPY IN TO SEE PATIENT.
--- NOTE | 2018-08-07 11:41 | NUR ---
REPORT HAS BEEN GIVING TO ASSUMING NURSE ON MEDICAL FLOOR, ROOM 334.
--- NOTE | 2018-08-07 11:46 | NUR ---
PATIENT TRANSFERRED TO MEDICAL FLOOR BY [facility] N[facility].
--- NOTE | 2018-08-07 12:10 | NUR ---
ICU TRANSFER TO [facility] 334 @ APPROX 1200. HE IS A/O X4, PLEASANT, APPRECIATIVE AFFECT. STATE NO PAIN/DISCOMFORT @ THIS TIME. ORIENTED TO ROOM/CALL SYSTEM. HRR 60'S-70'S. LS CLEAR T/O, 94% RA. BT+X4, PT STATE +BM THIS AM. PPP, 1+ EDEMA BLE. HE STATE LEGS TENDER R/T DIURESIS. STATE HE IS LIMITING FLUID INTAKE TODAY, DECLINES FLUIDS OR ICE CHIPS @ THIS TIME, STATE WILL WAIT FOR LUNCH TRAY.
--- NOTE | 2018-08-07 17:43 | NUR ---
SUMMARY PT IS A/O X4, PLEASANT AFFECT. ICU TRANSFER TODAY. HE HAS BEEN UP IND, AMBULATE IN [place] W VISITOR. DX NSTEMI, TX'D BY DR PACHECO (CARDIOLOGY) WHILE IN ICU. DIURETICS ORAL, DAILY @ THIS TIME. BLE EDEMATOUS, 2+ LATE AFTERNOON, PT HAS BEEN ELEVATING W PILLOWS. HE HAS BEEN LIMITING HIS FLUID INTAKE. LUNGS CLEAR. VSS. PT IS HOMELESS @ THIS TIME, SOSSERV ASSISTING/ATTEMPTING TO ARRANGE PLACEMENT THRU [facility].
--- NOTE | 2018-08-08 04:30 | NUR ---
SHIFT SUMMARY PT SLEPT FAIR, UP AND SHOWERED EARLY ON IN SHIFT. STATES HE FEELS SOMEWHAT BETTER AFTER SHOWER. SCD'S PLACED ON PT FOR DVT PREVENTION, PT REQUESTING TO HAVE THEM TURNED OFF AFTER A FEW HOURS. PT STATES THAT THEY ARE STARTING TO HURT HIS LEGS WHEN THEY SQUEEZE. PT TO BATHROOM PER SELF DURING THE NIGHT. NO ACUTE EVENTS OVERNIGHT. WILL CONTINUE TO MONITOR.
[2018-08-08 05:33] LABS: BASOPHILS ABSOLUTE AUTO 0.03 K/mm3 (0.00-0.23); BASOPHILS PERCENT AUTO 0 % (0-2); EOSINOPHILS ABSOLUTE AUTO 0.16 K/mm3 (0.00-0.68); EOSINOPHILS PERCENT AUTO 2 % (0-6); Hematocrit 27.7 % (37.0-53.0); Hemoglobin 8.9 g/dL (13.5-17.5); IMMATURE GRAN ABSOLUTE AUTO 0.02 K/mm3 (0.00-0.10); IMMATURE GRAN PERCENT AUTO 0 % (0-1); LYMPHOCYTES ABSOLUTE AUTO 1.66 K/mm3 (0.84-5.20); LYMPHOCYTES PERCENT AUTO 24 % (21-46); MONOCYTES ABSOLUTE AUTO 0.51 K/mm3 (0.16-1.47); MONOCYTES PERCENT AUTO 7 % (4-13); Mean Corpuscular HGB 29.2 pg (26.0-34.0); Mean Corpuscular HGB Conc 32.1 g/dL (31.5-36.5); Mean Corpuscular Volume 91 fL (80-100); Mean Platelet Volume 10.6 fL (9.1-12.4); NEUTROPHILS PERCENT AUTO 66 % (41-73); Platelet Count 325 K/mm3 (150-400); RDW Coefficient Variation 13.6 % (11.7-14.2); RDW Standard Deviation 44.9 fL (35.1-46.3); Red Blood Cell Count 3.05 M/mm3 (4.30-5.90); White Blood Cell Count 6.98 K/mm3 (4.00-11.30)
--- NOTE | 2018-08-08 05:56 | NUR ---
PT WITH C/O SORE THROAT THIS AM, TYLENOL GIVEN.
[2018-08-08 05:58] LABS: Anion Gap 7 mmol/L (6-16); Blood Urea Nitrogen 22 mg/dL (8-24); Bun/Creatinine Ratio 26.3 (12.0-20.0); CO2, Blood 24 mmol/L (21-32); Chloride, Blood 107 mmol/L (98-108); Creatinine, Blood 0.84 mg/dL (0.60-1.20); Glomerular Filtration Rate >60 (60-); Glucose, Blood 95 mg/dL (70-99); Potassium, Blood 4.3 mmol/L (3.5-5.5); Sodium, Blood 138 mmol/L (136-145)
--- NOTE | 2018-08-08 11:53 | NUR ---
Pt. is in bed resting he reports doing much better and is happy for that encouraged pt.ofered spiritual support and prayers for the pt.
--- NOTE | 2018-08-08 16:50 | NUR ---
SHIFT SUMMARY LASIX DOSE INCREASE PER MD. NO CHANGES IN ASSESSMENT AT THIS TIME. VSS. PT RESTING IN BED. DENIES NEEDS AT THIS TIME. PT HAS NOT NEEDED PAIN MEDICATION FOR LEGS THIS SHIFT. CALL LIGHT IN REACH. WILL CONTINUE TO MONITOR UNTIL TURNOVER IS COMPLETE.
[2018-08-09 05:42] LABS: BASOPHILS ABSOLUTE AUTO 0.04 K/mm3 (0.00-0.23); BASOPHILS PERCENT AUTO 1 % (0-2); EOSINOPHILS ABSOLUTE AUTO 0.18 K/mm3 (0.00-0.68); EOSINOPHILS PERCENT AUTO 3 % (0-6); Hematocrit 28.1 % (37.0-53.0); Hemoglobin 8.9 g/dL (13.5-17.5); IMMATURE GRAN ABSOLUTE AUTO 0.01 K/mm3 (0.00-0.10); IMMATURE GRAN PERCENT AUTO 0 % (0-1); LYMPHOCYTES ABSOLUTE AUTO 1.96 K/mm3 (0.84-5.20); LYMPHOCYTES PERCENT AUTO 28 % (21-46); MONOCYTES ABSOLUTE AUTO 0.43 K/mm3 (0.16-1.47); MONOCYTES PERCENT AUTO 6 % (4-13); Mean Corpuscular HGB 29.2 pg (26.0-34.0); Mean Corpuscular HGB Conc 31.7 g/dL (31.5-36.5); Mean Corpuscular Volume 92 fL (80-100); Mean Platelet Volume 10.4 fL (9.1-12.4); NEUTROPHILS ABSOLUTE AUTO 4.29 K/mm3 (1.96-9.15); NEUTROPHILS PERCENT AUTO 62 % (41-73); Platelet Count 334 K/mm3 (150-400); RDW Coefficient Variation 13.3 % (11.7-14.2); RDW Standard Deviation 45.3 fL (35.1-46.3); Red Blood Cell Count 3.05 M/mm3 (4.30-5.90); White Blood Cell Count 6.91 K/mm3 (4.00-11.30)
[2018-08-09 06:00] LABS: Albumin, Blood 2.4 g/dL (3.4-5.0); Anion Gap 6 mmol/L (6-16); Blood Urea Nitrogen 17 mg/dL (8-24); Bun/Creatinine Ratio 19.8 (12.0-20.0); CO2, Blood 27 mmol/L (21-32); Calcium, Blood 7.8 mg/dL (8.5-10.1); Chloride, Blood 105 mmol/L (98-108); Creatinine, Blood 0.86 mg/dL (0.60-1.20); Glomerular Filtration Rate >60 (60-); Glucose, Blood 87 mg/dL (70-99); Magnesium, Blood 1.9 mg/dL (1.6-2.4); Phosphorus, Blood 3.8 mg/dL (2.5-4.9); Potassium, Blood 4.1 mmol/L (3.5-5.5); Sodium, Blood 138 mmol/L (136-145)
--- NOTE | 2018-08-09 07:10 | NUR ---
a+o, leg pain controlled with medication, showered, call light in reach, room air, saline lock, walking rounds completed with day staff
[2018-08-09 09:02] LABS: Percent Saturation 8.6 % (20.0-50.0)
--- NOTE | 2018-08-09 13:00 | NUR ---
REVIEWED D'C. PATIENT LEFT BEFORE GETTING WRITTEN INSTRUCTIONS
--- NOTE | 2018-08-09 13:43 | NUR ---
Met pt. sitting up on his bed and talking with a friend visitor in the room. pt. is doing well and may go home today or ditez prayed for the pt.
[2018-08-09] MEDS ORDERED: ATOR40TA PO (14:20)
[2018-08-09] MEDS ORDERED: ACET325 PO (14:20)
[2018-08-09] MEDS ORDERED: CLOP75 PO (14:21)
[2018-08-09] MEDS ORDERED: Prozac20 MG PO (14:22)
[2018-08-09] MEDS ORDERED: FURO40 PO (14:23)
[2018-08-09] MEDS ORDERED: Lisinopril2.5 MG PO (14:24)
[2018-08-09] MEDS ORDERED: Micro-K10 MEQ PO (14:25)
[2018-08-09] MEDS ORDERED: BAYER CHEWABLE81 MG PO (14:28)
== END 2018-08-09 16:00 | disposition home or self-care (01) | DRG 917 ==
LOC: ER 18:05 → ICUW 19:03 → ICUE 19:03 → MEDS 08-07 11:49
PROVIDERS: Emergency Medicine; Internal Medicine; Internal Medicine Cardiovascular Disease; Internal Medicine Critical Care Medicine; Internal Medicine Pulmonary Disease; ADMIT Internal Medicine Cardiovascular Disease
PROC: 5A1955Z Respiratory Ventilation, Greater than 96 Consecutive Hours (ICD-10-PCS; 2018-07-27)
PROC: 0BH18EZ Insertion of Endotracheal Airway into Trachea, Via Natural or Artificial Opening Endoscopic (ICD-10-PCS; 2018-07-27)
PROC: 02HV33Z Insertion of Infusion Device into Superior Vena Cava, Percutaneous Approach (ICD-10-PCS; principal; 2018-07-28)
DX: T43.622A Poisoning by amphetamines, intentional self-harm, initial encounter (principal); J96.01 Acute respiratory failure with hypoxia; I21.3 ST elevation (STEMI) myocardial infarction of unspecified site; R57.0 Cardiogenic shock; I50.21 Acute systolic (congestive) heart failure; J69.0 Pneumonitis due to inhalation of food and vomit; I21.9 Acute myocardial infarction, unspecified; N17.9 Acute kidney failure, unspecified; N39.0 Urinary tract infection, site not specified; E86.0 Dehydration; I44.7 Left bundle-branch block, unspecified; I48.0 Paroxysmal atrial fibrillation; Z66 Do not resuscitate; K80.20 Calculus of gallbladder without cholecystitis without obstruction; G43.909 Migraine, unspecified, not intractable, without status migrainosus; F21 Schizotypal disorder; I25.10 Atherosclerotic heart disease of native coronary artery without angina pectoris; F15.10 Other stimulant abuse, uncomplicated; E87.70 Fluid overload, unspecified; F43.10 Post-traumatic stress disorder, unspecified; Z59.0 Homelessness; F41.8 Other specified anxiety disorders; Y92.9 Unspecified place or not applicable
CPT/HCPCS: 31500; 31720; 36415; 36556; 36600; 51702; 70450; 71045; 71260; 74177; 80047; 80048; 80053; 80061; 80069; 80202; 81001; 82550; 82553; 82728; 82803; 82947; 83540; 83550; 83605; 83735; 83880; 84100; 84145; 84450; 84460; 84484; 85014; 85025; 85027; 85610; 85730; 86850; 86900; 86901; 87040; 87070; 87077; 87086; 87186; 87205; 90686; 92610; 93005; 93010; 93308; 93321; 94002; 94003; 94667; 94770; 96365-59; 96366-59; 96367-59; 96375-59; 96376-59; 97110; 97116; 97162; 97165; 97530; 99291-25; 99292; A9270-GY; C1751; C9113; J0171; J0330; J0461; J0690; J0696; J1265; J1644; J1650; J1940; J2060; J2250; J2405; J2543; J3010; J3370; J7030; J7040; J7060; Q9967

== ENCOUNTER 2018-09-04 20:42 | Emergency (ER) | payer SELFPAY ==
[~2018-09-04] VITALS: Ht 188 cm; Wt 85.3 kg
[~2018-09-04 20:42] MED LIST changes: +ACET325 PO; +ATOR40TA PO; +BAYER CHEWABLE81 MG PO; +CLOP75 PO; +FURO40 PO; +Lisinopril2.5 MG PO; +Lopressor 25 mg25 MG PO; +Micro-K10 MEQ PO; +Prozac20 MG PO
[2018-09-04] MEDS ORDERED: ASCO500 PO (21:01)
[2018-09-04] MEDS ORDERED: XARELTO20 MG PO (21:06)
[2018-09-04] MEDS ORDERED: NITR.4SL SL (21:08)
== END 2018-09-04 22:39 | disposition left against medical advice (07) ==
LOC: ER 20:42
DX: N17.9 Acute kidney failure, unspecified (principal); R55 Syncope and collapse; R79.89 Other specified abnormal findings of blood chemistry; I48.91 Unspecified atrial fibrillation; I50.9 Heart failure, unspecified; I25.2 Old myocardial infarction; Z87.891 Personal history of nicotine dependence; Z79.899 Other long term (current) drug therapy; Z79.82 Long term (current) use of aspirin
CPT/HCPCS: 36415; 84484; 93005; 93010; 99285-25

== ENCOUNTER 2018-09-09 17:55 | Inpatient (IN) | payer OTHER ==
[~2018-09-09] VITALS: Ht 188 cm; Wt 83.1 kg
[~2018-09-09 17:55] MED LIST changes: +ASCO500 PO; -Lopressor 25 mg25 MG PO; +METO50ER PO; +NITR.4SL SL; +XARELTO20 MG PO
[2018-09-09 18:29] LABS: BASOPHILS ABSOLUTE AUTO 0.03 K/mm3 (0.00-0.23); BASOPHILS PERCENT AUTO 0 % (0-2); EOSINOPHILS ABSOLUTE AUTO 0.03 K/mm3 (0.00-0.68); EOSINOPHILS PERCENT AUTO 0 % (0-6); Hematocrit 35.3 % (37.0-53.0); IMMATURE GRAN ABSOLUTE AUTO 0.06 K/mm3 (0.00-0.10); IMMATURE GRAN PERCENT AUTO 0 % (0-1); LYMPHOCYTES ABSOLUTE AUTO 0.82 K/mm3 (0.84-5.20); LYMPHOCYTES PERCENT AUTO 6 % (21-46); MONOCYTES ABSOLUTE AUTO 0.86 K/mm3 (0.16-1.47); MONOCYTES PERCENT AUTO 6 % (4-13); Mean Corpuscular HGB 27.9 pg (26.0-34.0); Mean Corpuscular HGB Conc 31.2 g/dL (31.5-36.5); Mean Corpuscular Volume 90 fL (80-100); Mean Platelet Volume 10.3 fL (9.1-12.4); NEUTROPHILS ABSOLUTE AUTO 12.86 K/mm3 (1.96-9.15); NEUTROPHILS PERCENT AUTO 88 % (41-73); Platelet Count 252 K/mm3 (150-400); RDW Coefficient Variation 15.1 % (11.7-14.2); RDW Standard Deviation 49.4 fL (35.1-46.3); Red Blood Cell Count 3.94 M/mm3 (4.30-5.90); White Blood Cell Count 14.66 K/mm3 (4.00-11.30)
[2018-09-09 19:17] LABS: Alanine Aminotransfer (ALT/SGP 29 U/L (12-78); Albumin, Blood 3.3 g/dL (3.4-5.0); Albumin/Globulin Ratio 0.9 (0.8-1.8); Alk Phos 58 U/L (50-136); Anion Gap 9 mmol/L (6-16); Aspartate Aminotrans (AST/SGOT 31 U/L (12-37); Bilirubin, Total 1.2 mg/dL (0.1-1.0); Blood Urea Nitrogen 15 mg/dL (8-24); Bun/Creatinine Ratio 14.2 (12.0-20.0); CO2, Blood 26 mmol/L (21-32); Calcium, Blood 8.4 mg/dL (8.5-10.1); Chloride, Blood 101 mmol/L (98-108); Creatinine, Blood 1.06 mg/dL (0.60-1.20); Globulin, Blood 3.8 g/dL (2.2-4.0); Glomerular Filtration Rate >60 (60-); Glucose, Blood 129 mg/dL (70-99); Potassium, Blood 4.1 mmol/L (3.5-5.5); Sodium, Blood 136 mmol/L (136-145); Total Protein, Blood 7.1 g/dL (6.4-8.2)
[2018-09-09] MEDS ORDERED: Prozac20 MG (20:27)
[2018-09-09] MEDS ORDERED: FURO40 PO (20:28)
[2018-09-09 22:13] LABS: Source, Urine Catheter
[2018-09-09 22:18] LABS: Bilirubin, Urine Neg (Neg); Blood, Urine 3+ (Neg); Glucose Qualitative, Urine Neg (Neg); Ketones, Urine Neg (Neg); Leukocyte Esterase, Urine Neg (Neg); Nitrite, Urine Neg (Neg); Protein, Urine 2+ (Neg); Urobilinogen, Urine NORM (Normal)
[2018-09-09 22:26] LABS: Color, Urine Yellow (P-Yellow)
[2018-09-09 22:28] LABS: Appearance, Urine Clear (Clear); Bacteria Not Seen /hpf; Red Blood Cells, Urine 0-2 /hpf (0-2); Squamous Epithelial Cells Rare /hpf (Few); U Amphetamine Screen DETECTED; U Barbituate Screen Not Detected; U Benzodiazapine Screen Not Detected; U Buprenorphine Screen Not Detected; U Cannabinoids Screen Not Detected; U Cocaine Screen Not Detected; U Methadone Screen Not Detected; U Methamphetamine Screen DETECTED; U Opiates Screen Not Detected; U Oxycodone Screen Not Detected; U Phencyclidine Screen Not Detected; U Propoxyphene Screen Not Detected; White Blood Cells, Urine Not Seen /hpf (0-5)
--- NOTE | 2018-09-10 | NUR ---
ADMIT PT ARRIVES TO [facility] FROM ER VIA STRETCHER. PT IS CURRENTLY AOX4. AMBULATES WITH STANDBY ASSIST TO HOSPITAL BED WITHOUT DIFFICULTY- PT IS STEADY ON HIS FEET, DENIES DIZZINESS WITH AMBULATION. VSS. PT REPORTS FEELING VERY TIRED AND READY FOR BED. LUNG SOUNDS CLEAR IN UPPER LOBES, DIMINISHED IN THE BASES. PT CURRENTLY DENIES CHEST PAIN. HEART RHYTHM IS SINUS TACH WITH PVC'S AND PAC'S. PT ORIENTED TO ROOM AND CALL LIGHT SYSTEM, EDUCATED ON CALLING FOR ASSISTANCE WITH NEEDS. PT IS FALL RISK DUE TO RECENT REPORTED FALLS. WILL CONTINUE WITH ADMISSION, BED IN LOW POSITION, BED ALARM SET FOR SAFETY.
[2018-09-10] MEDS ORDERED: ASPI325 PO (00:03)
[2018-09-10] MEDS ORDERED: POTCHL10ER PO (00:04)
--- NOTE | 2018-09-10 05:57 | NUR ---
SHIFT SUMMARY- PT HAS REMAINED AOX4 THROUHGOUT SHIFT. VSS. PLEASANT AND COOPERATIVE WITH CARE. PT HAS SLEPT THROUGHOUT MUCH OF THE SHIFT WITH NOTED SNORING AND PERIODS OF APNEA. O2 SATS HAVE REMAINED >90% WHILE AWAKE AND SLEEPING WHEN OBSERVED. PT HAS REMAINED NPO SINCE 529 THIS AM FOR POTENTIAL CARDIOLOGY INTERVENTION. CONTINUES TO DENY CHEST PAIN AND DYSPNEA. USES URINAL AT BEDSIDE WITHOUT ASSISTANCE. NO OTHER CHANGES NOTED FROM INITIAL ASSESSMENT. WILL CONTINUE TO MONITOR AND REPORT TO ONCOMING SHIFT RN. BED IN LOW POSITION, CALL LIGHT IN REACH. BED ALARM SET FOR SAFETY.
[2018-09-10 06:59] LABS: Hematocrit 33.4 % (37.0-53.0); Hemoglobin 10.5 g/dL (13.5-17.5); Mean Corpuscular HGB 28.1 pg (26.0-34.0); Mean Corpuscular HGB Conc 31.4 g/dL (31.5-36.5); Mean Corpuscular Volume 89 fL (80-100); Mean Platelet Volume 10.1 fL (9.1-12.4); Platelet Count 227 K/mm3 (150-400); RDW Coefficient Variation 15.2 % (11.7-14.2); RDW Standard Deviation 49.2 fL (35.1-46.3); Red Blood Cell Count 3.74 M/mm3 (4.30-5.90)
[2018-09-10 07:14] LABS: International Normalized Ratio 1.25
[2018-09-10 07:22] LABS: Alanine Aminotransfer (ALT/SGP 25 U/L (12-78); Albumin/Globulin Ratio 0.9 (0.8-1.8); Alk Phos 53 U/L (50-136); Anion Gap 7 mmol/L (6-16); Aspartate Aminotrans (AST/SGOT 20 U/L (12-37); Bilirubin, Total 0.7 mg/dL (0.1-1.0); Blood Urea Nitrogen 16 mg/dL (8-24); CO2, Blood 26 mmol/L (21-32); Calcium, Blood 8.5 mg/dL (8.5-10.1); Chloride, Blood 105 mmol/L (98-108); Creatinine, Blood 0.89 mg/dL (0.60-1.20); Globulin, Blood 3.5 g/dL (2.2-4.0); Glomerular Filtration Rate >60 (60-); Glucose, Blood 103 mg/dL (70-99); Magnesium, Blood 2.2 mg/dL (1.6-2.4); Potassium, Blood 3.7 mmol/L (3.5-5.5); Sodium, Blood 138 mmol/L (136-145); Total Protein, Blood 6.5 g/dL (6.4-8.2)
--- NOTE | 2018-09-10 09:26 | NUR ---
Echocardiogram completed.
--- NOTE | 2018-09-10 11:25 | NUR ---
BEGINING OF SHIFT: ASSUMED CARE OF PT AT 0700, RECIVED REPORT FROM ZOE HANSON. UPON ENTERING ROOM, PT WAS ALERT AND ORIENTED AND WAS ABLE TO FOLLOW DIRECTIONS. PT HAS NO SIGNIFICANT CHANGES FROM YESTERDAY, AWATING FOR BOWELS TO DEVELOP A BM BEFORE PT CAN BE DISCHARGED HOME. PT IS STILL REQUIRING PAIN MEDS REGULARLY FOR CHRONIC RIGHT SHOULDER PAIN. WILL CONTINUE TO MONITOR STATUS T/O SHIFT.
--- NOTE | 2018-09-10 13:07 | NUR ---
BEGINNING OF SHIFT Assumed care of pt at 0700. Report received from Sabrina HANSON. Pt on room air. Bed alarm applied. Irregular sinus rhtyhm per telemetry. Plan of care discussed with Dr Harper. Orders given for tums, as pt states he has heartburn. Pt states heartburn is different from the cardiac pain the pt has experienced. Ortostatics completed. Pt has ambulated once around the unit. Pt tolerated ambulation well. Bed in lowest position. Call light in reach. Pt denies need at this time.
--- NOTE | 2018-09-10 13:52 | NUR ---
09/10/18 patient gave nursing consultant Miya Galarza permission to treat on 09/11/18-
--- NOTE | 2018-09-10 18:06 | NUR ---
SHIFT SUMMARY No acute changes t/o shift. Pt has had heartburn for most of shift. Pt stated some relief after taking tums and after eating. Pt was NPO until he was seen by flight/transport nurse. Pt stated feeling much better after being able to eat. No events per telemetry. Pt has tendency to switch between sinus rhythm and atrial fibrillation on telemetry. HR stable in atrial fibrillation, ranging betweem 90 and 110. Bed in lowest position. Call light in reach. Pt denies need at this time. Will contine to closely monitor until care handoff and bedside report with oncoming RN.
--- NOTE | 2018-09-11 05:44 | NUR ---
SHIFT SUMMARY- PT HAS REMAINED AOX4 THROUGHOUT SHIFT. VSS. PLEASANT AND COOPERATIVE WITH CARE. PT HAS SLEPT THROUGHOUT MUCH OF THE NIGHT WITH CONTINUOUS BIOX IN PLACE FOR SLEEP OXIMETRY STUDY. MEDICATED ONCE THROUGHOUT SHIFT FOR HEADACHE PAIN AND ONCE FOR ANXIETY, BOTH OF WHICH DECREASED WITH ORDERED MEDICATIONS. PT CONTINUES TO DENY CHEST PAIN OR DYSPNEA. CONTINUES TO AMBULATE INDEPENDENTLY TO RESTROOM WITHOUT DIFFICULTY. DENIES DIZZINESS WITH MOVEMENT OR AMBULATION. WILL CONTINUE TO MONITOR AND REPORT TO ONCOMING SHIFT RN. BED IN LOW POSITION, CALL LIGHT IN REACH.
--- NOTE | 2018-09-11 09:19 | NUR ---
BEGINNING OF SHIFT Assumed care of pt at 0700. Report recieved from Hyacinth HANSON. Pt laying in bed. Shift assessment completed. Pt on room air. Pt in irregular sinus rhtyhm per telemetry. Orthostatic vital signs completed. Bed in lowest position. Call light in reach. Pt denies need at this time. Independent in room. Steady on feet. Denies lightheadedness or shortness of breath.
--- NOTE | 2018-09-11 18:14 | NUR ---
DISCHARGE SUMMARY Pt discharged from unit at 1540. 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 Medications faxed to [facility]. AOD contacted by Debbi HANSON. Changes to medications educated to pt. Pt verbalized understanding. IV access discontinued. Telemetry removed. Pt educated on low salt low fat diet, methamphetamine abuse, and heart failure.
== END 2018-09-11 15:56 | disposition home or self-care (01) | DRG 897 ==
LOC: ER 17:55 → PCU 20:45
PROVIDERS: Emergency Medicine; Nurse Practitioner Acute Care; Physician Assistant; ADMIT Internal Medicine
DX: F15.188 Other stimulant abuse with other stimulant-induced disorder (principal); Z79.82 Long term (current) use of aspirin; Z87.891 Personal history of nicotine dependence; B19.20 Unspecified viral hepatitis C without hepatic coma; Z79.02 Long term (current) use of antithrombotics/antiplatelets; F41.1 Generalized anxiety disorder; F32.9 Major depressive disorder, single episode, unspecified; I48.0 Paroxysmal atrial fibrillation; E83.42 Hypomagnesemia; I25.10 Atherosclerotic heart disease of native coronary artery without angina pectoris; Z91.14 Patient's other noncompliance with medication regimen; Z59.0 Homelessness; I25.2 Old myocardial infarction
CPT/HCPCS: 36415; 51701; 51798; 71046; 80053; 81001; 83735; 83880; 84484; 85025; 85027; 85610; 93005; 93010; 93308; 93321; 94762; 96365-59; 96366-59; 96375-59; 99285-25; C9113; J2060; J3475; J7030

== ENCOUNTER 2018-12-13 10:38 | Emergency (ER) | payer OTHER ==
[~2018-12-13] VITALS: Ht 188 cm; Wt 86.2 kg
[~2018-12-13 10:38] MED LIST changes: +POTCHL10ER PO; +Prozac20 MG
[2018-12-13 11:30] LABS: BASOPHILS ABSOLUTE AUTO 0.04 K/mm3 (0.00-0.23); BASOPHILS PERCENT AUTO 1 % (0-2); EOSINOPHILS ABSOLUTE AUTO 0.08 K/mm3 (0.00-0.68); EOSINOPHILS PERCENT AUTO 1 % (0-6); Hematocrit 38.6 % (37.0-53.0); Hemoglobin 12.2 g/dL (13.5-17.5); IMMATURE GRAN ABSOLUTE AUTO 0.03 K/mm3 (0.00-0.10); IMMATURE GRAN PERCENT AUTO 0 % (0-1); LYMPHOCYTES ABSOLUTE AUTO 0.98 K/mm3 (0.84-5.20); LYMPHOCYTES PERCENT AUTO 13 % (21-46); MONOCYTES ABSOLUTE AUTO 0.47 K/mm3 (0.16-1.47); MONOCYTES PERCENT AUTO 6 % (4-13); Mean Corpuscular HGB 28.6 pg (26.0-34.0); Mean Corpuscular HGB Conc 31.6 g/dL (31.5-36.5); Mean Corpuscular Volume 91 fL (80-100); NEUTROPHILS ABSOLUTE AUTO 6.17 K/mm3 (1.96-9.15); NEUTROPHILS PERCENT AUTO 80 % (41-73); Platelet Count 190 K/mm3 (150-400); RDW Coefficient Variation 15.6 % (11.7-14.2); Red Blood Cell Count 4.26 M/mm3 (4.30-5.90); White Blood Cell Count 7.77 K/mm3 (4.00-11.30)
[2018-12-13 12:15] LABS: Alanine Aminotransfer (ALT/SGP 20 U/L (12-78); Albumin, Blood 3.8 g/dL (3.4-5.0); Albumin/Globulin Ratio 1.1 (0.8-1.8); Alk Phos 52 U/L (50-136); Anion Gap 5 mmol/L (6-16); Aspartate Aminotrans (AST/SGOT 22 U/L (12-37); Bilirubin, Total 0.8 mg/dL (0.1-1.0); Blood Urea Nitrogen 16 mg/dL (8-24); Bun/Creatinine Ratio 16.3 (12.0-20.0); CO2, Blood 25 mmol/L (21-32); Calcium, Blood 8.9 mg/dL (8.5-10.1); Chloride, Blood 107 mmol/L (98-108); Creatinine, Blood 0.98 mg/dL (0.60-1.20); Globulin, Blood 3.4 g/dL (2.2-4.0); Glomerular Filtration Rate >60 (60-); Glucose, Blood 115 mg/dL (70-99); Potassium, Blood 4.1 mmol/L (3.5-5.5); Sodium, Blood 137 mmol/L (136-145); Total Protein, Blood 7.2 g/dL (6.4-8.2); Troponin I 0.019 ng/mL (0.000-0.040)
[2018-12-13] MEDS ORDERED: LITH300C PO (13:03)
== END 2018-12-13 13:01 | disposition home or self-care (01) ==
LOC: ER 10:38
PROVIDERS: Emergency Medicine
DX: R00.2 Palpitations (principal); I48.91 Unspecified atrial fibrillation; I25.2 Old myocardial infarction; I10 Essential (primary) hypertension; Z86.19 Personal history of other infectious and parasitic diseases; Z79.899 Other long term (current) drug therapy; Z87.891 Personal history of nicotine dependence
CPT/HCPCS: 36415; 71046; 80053; 84484; 85025; 93005; 93010; 99285-25

== ENCOUNTER 2020-06-12 17:17 | Emergency (ER) | payer OTHER ==
[~2020-06-12] VITALS: Ht 188 cm; Wt 102.1 kg
[~2020-06-12 17:17] MED LIST changes: +LITH300C PO
[2020-06-12 18:43] LABS: BASOPHILS PERCENT AUTO 1 % (0-2); EOSINOPHILS ABSOLUTE AUTO 0.41 K/mm3 (0.00-0.68); EOSINOPHILS PERCENT AUTO 5 % (0-6); Hematocrit 43.3 % (37.0-53.0); Hemoglobin 13.5 g/dL (13.5-17.5); IMMATURE GRAN ABSOLUTE AUTO 0.01 K/mm3 (0.00-0.10); IMMATURE GRAN PERCENT AUTO 0 % (0-1); LYMPHOCYTES ABSOLUTE AUTO 1.94 K/mm3 (0.84-5.20); LYMPHOCYTES PERCENT AUTO 26 % (21-46); MONOCYTES PERCENT AUTO 8 % (4-13); Mean Corpuscular HGB 27.2 pg (26.0-34.0); Mean Corpuscular HGB Conc 31.2 g/dL (31.5-36.5); Mean Corpuscular Volume 87 fL (80-100); Mean Platelet Volume 10.2 fL (9.1-12.4); NEUTROPHILS ABSOLUTE AUTO 4.55 K/mm3 (1.96-9.15); NEUTROPHILS PERCENT AUTO 60 % (41-73); Platelet Count 259 K/mm3 (150-400); RDW Coefficient Variation 13.9 % (11.7-14.2); RDW Standard Deviation 44.5 fL (35.1-46.3); Red Blood Cell Count 4.97 M/mm3 (4.30-5.90); White Blood Cell Count 7.61 K/mm3 (4.00-11.30)
[2020-06-12 19:11] LABS: Alanine Aminotransfer (ALT/SGP 17 U/L (12-78); Albumin/Globulin Ratio 1.1 (0.8-1.8); Alk Phos 50 U/L (50-136); Anion Gap 7 mmol/L (6-16); Aspartate Aminotrans (AST/SGOT 22 U/L (12-37); Bilirubin, Total 0.2 mg/dL (0.1-1.0); Blood Urea Nitrogen 27 mg/dL (8-24); Bun/Creatinine Ratio 27.9 (12.0-20.0); CO2, Blood 22 mmol/L (21-32); Chloride, Blood 111 mmol/L (98-108); Creatinine, Blood 0.97 mg/dL (0.60-1.20); Globulin, Blood 3.6 g/dL (2.2-4.0); Glomerular Filtration Rate >60 (60-); Glucose, Blood 97 mg/dL (70-99); Potassium, Blood 4.9 mmol/L (3.5-5.5); Sodium, Blood 140 mmol/L (136-145); Total Protein, Blood 7.6 g/dL (6.4-8.2); Troponin I 0.016 ng/mL (0.000-0.040)
[2020-06-12] MEDS ORDERED: METO100ER PO (23:31)
[2020-06-12 23:34] LABS: Ethanol (Alcohol), Blood, Med <3 mg/dL; Magnesium, Blood 2.3 mg/dL (1.6-2.4)
[2020-09-01] MEDS ORDERED: Amiodarone HCl200 MG PO (17:28)
== END 2020-06-13 00:19 | disposition home or self-care (01) ==
LOC: ER 17:17
PROVIDERS: Emergency Medicine; Physician Assistant
DX: I48.92 Unspecified atrial flutter (principal); Z91.14 Patient's other noncompliance with medication regimen; Z79.01 Long term (current) use of anticoagulants; Z79.899 Other long term (current) drug therapy
CPT/HCPCS: 71046; 80053; 83735; 84484; 85025; 93005; 93010; 96374; 99285-25; G0480

== ENCOUNTER 2020-09-02 06:10 | Day surgery (SDC) | payer OTHER ==
[~2020-09-02] VITALS: Ht 188 cm; Wt 102.0 kg
[~2020-09-02 06:10] MED LIST changes: +Amiodarone HCl200 MG PO; +METO100ER PO
--- NOTE | 2020-09-02 07:42 | NUR ---
CARDIOVERSION CANCELED R/T HRT BEING IN SR 60BPM. PT INSTRUCTED TO CONTINUE ALL NORMAL MEDICATIONS. IV REMOVED. PT AMB OUT OF THE HRT CENTER /S DIFFICULTY.
== END 2020-09-02 22:46 | disposition home or self-care (01) ==
LOC: MHTC 06:10
DX: I48.4 Atypical atrial flutter (principal); I25.10 Atherosclerotic heart disease of native coronary artery without angina pectoris; I25.2 Old myocardial infarction; J44.9 Chronic obstructive pulmonary disease, unspecified; Z87.891 Personal history of nicotine dependence; Z79.01 Long term (current) use of anticoagulants; Z53.8 Procedure and treatment not carried out for other reasons
CPT/HCPCS: 93005; 93010; J2704; J7030

== ENCOUNTER 2020-09-21 11:16 | Day surgery (SDC) | payer OTHER ==
[~2020-09-21] VITALS: Ht 188 cm; Wt 102.0 kg
[2020-09-21] MEDS ORDERED: VITAMIN D31000 UNI1 PO (11:57)
--- NOTE | 2020-09-21 13:00 | NUR ---
PT AWAKE AND CONVERSING APPROPRIATELY POST CARDIOVERSION, DENIES CHEST PAIN. MONITOR SR 60'S, B/P 114/82, SPO2 95% RA.
--- NOTE | 2020-09-21 13:20 | NUR ---
PT DRESSED SELF WITHOUT ISSUE, IV REMOVED-CANNULA INTACT.
--- NOTE | 2020-09-21 13:35 | NUR ---
PT RECEIVED DISCHARGE INSTRUCTIONS, MED LIST AND AFTER CARE INSTRUCTIONS; VERBALIZED GOOD UNDERSTANDING. PT LEFT FACILITY VIA W/C, CONDITION STABLE.
== END 2020-09-21 23:13 | disposition home or self-care (01) ==
LOC: MHTC 11:16 → PRC 11:30 → MHTC 23:13
DX: I48.92 Unspecified atrial flutter (principal); I25.10 Atherosclerotic heart disease of native coronary artery without angina pectoris; J44.9 Chronic obstructive pulmonary disease, unspecified; Z87.891 Personal history of nicotine dependence; Z79.01 Long term (current) use of anticoagulants
CPT/HCPCS: 92960; 93005; 93010; J2250; J2704; J7030

== ENCOUNTER 2023-02-28 05:54 | Day surgery (SDC) | payer OTHER ==
[2023-02-28] VITALS (25 sets, daily range): BP systolic 81–169; BP diastolic 55–121
[~2023-02-28] VITALS: Ht 188 cm; Wt 106.0 kg
[~2023-02-28 05:54] MED LIST changes: +METO25ER PO; +OMEP20ER PO; +Prinivil10 MG PO; +VITAMIN D31000 UNI1 PO
[2023-02-28] MEDS ORDERED: XARELTO20 MG PO (06:23)
--- NOTE | 2023-02-28 07:41 | NUR ---
PT TOLERATED LEONARDA WELL. PT TALKIING WITH DR LUU. CALL LIGHT IN REACH.
[2023-02-28] MEDS ORDERED: FEROSUL325 M1 PO (07:56)
[2023-02-28] MEDS ORDERED: TAMS.4ER PO (07:57)
[2023-02-28] MEDS ORDERED: C COMPLEX1000 M1 PO (07:57)
[2023-02-28] MEDS ORDERED: LASIX40 MG PO (07:58)
--- NOTE | 2023-02-28 08:34 | NUR ---
PT DRANK WATER WITH NO ASPIRATION. DISCHARGE INSTRUCTIONS REVIEWED ALL QUESTIONS ANSWERED. 20G IV DISCONTINUED FROM RIGHT WRIST WITH INTACT CANNULA. PT ESCORTED OUT VIA WHEELCHAIR ESCORT.
== END 2023-03-01 23:53 | disposition home or self-care (01) ==
LOC: MHTC 05:54
DX: I48.92 Unspecified atrial flutter (principal); I35.0 Nonrheumatic aortic (valve) stenosis; R06.02 Shortness of breath; I10 Essential (primary) hypertension; I48.0 Paroxysmal atrial fibrillation
CPT/HCPCS: 93312; 93325; A9270; J2371; J2405; J2704; J7030

== ENCOUNTER 2024-01-19 11:00 | Emergency (ER) | payer OTHER ==
[~2024-01-19] VITALS: Ht 188 cm; Wt 106.6 kg
[~2024-01-19 11:00] MED LIST changes: +C COMPLEX1000 M1 PO; +FEROSUL325 M1 PO; +LASIX40 MG PO; +TAMS.4ER PO
[2024-01-19 11:48] LABS: BASOPHILS ABSOLUTE AUTO 0.07 K/mm3 (0.00-0.23); BASOPHILS PERCENT AUTO 1 % (0-2); EOSINOPHILS ABSOLUTE AUTO 0.15 K/mm3 (0.00-0.68); EOSINOPHILS PERCENT AUTO 2 % (0-6); Hematocrit 40.9 % (37.0-53.0); Hemoglobin 13.5 g/dL (13.5-17.5); IMMATURE GRAN ABSOLUTE AUTO 0.01 K/mm3 (0.00-0.10); IMMATURE GRAN PERCENT AUTO 0 % (0-1); LYMPHOCYTES ABSOLUTE AUTO 0.94 K/mm3 (0.84-5.20); LYMPHOCYTES PERCENT AUTO 14 % (21-46); MONOCYTES ABSOLUTE AUTO 0.42 K/mm3 (0.16-1.47); MONOCYTES PERCENT AUTO 6 % (4-13); Mean Corpuscular Volume 94 fL (80-100); Mean Platelet Volume 9.7 fL (9.1-12.4); NEUTROPHILS ABSOLUTE AUTO 5.27 K/mm3 (1.96-9.15); NEUTROPHILS PERCENT AUTO 77 % (41-73); Platelet Count 245 K/mm3 (150-400); RDW Coefficient Variation 14.6 % (11.7-14.2); RDW Standard Deviation 50.8 fL (35.1-46.3); Red Blood Cell Count 4.36 M/mm3 (4.30-5.90); White Blood Cell Count 6.86 K/mm3 (4.00-11.30)
[2024-01-19 11:56] LABS: Albumin, Blood 3.7 g/dL (3.4-5.0); Albumin/Globulin Ratio 0.9 (0.8-1.8); Bilirubin, Total 1.2 mg/dL (0.1-1.0); Bun/Creatinine Ratio 21.3 (12.0-20.0); Creatinine, Blood 1.27 mg/dL (0.60-1.20); Globulin, Blood 4.1 g/dL (2.2-4.0); Magnesium, Blood 1.8 mg/dL (1.6-2.4); Potassium, Blood 3.4 mmol/L (3.5-5.5); Total Protein, Blood 7.8 g/dL (6.4-8.2)
[2024-01-19] MEDS ORDERED: Potassium Chloride 20 MEQ TabCR PO ONE ×2 (12:10→14:30)
[2024-01-19] MEDS ORDERED: NS 1,000 ML IV SCH (12:10)
[2024-01-19 14:42] VITALS: BP 136/85
== END 2024-01-19 14:42 | disposition home or self-care (01) ==
LOC: ER 11:00
PROVIDERS: Emergency Medicine
DX: E87.6 Hypokalemia (principal); E86.1 Hypovolemia; G90.A Postural orthostatic tachycardia syndrome [POTS]; I48.91 Unspecified atrial fibrillation; I25.2 Old myocardial infarction; I10 Essential (primary) hypertension; Z87.891 Personal history of nicotine dependence; Z79.899 Other long term (current) drug therapy
CPT/HCPCS: 80053; 83735; 84484; 85025; 86850; 86900; 86901; 93005; 93010; 99285-25; A9270; J7030